=== PATIENT | male | born 1960 | race Caucasian/White ===

== ENCOUNTER 2017-03-21 13:43 | Inpatient (IN) | payer MEDICARE, OTHER ==
[~2017-03-21] VITALS: Ht 182.9 cm; Wt 99.8 kg
[~2017-03-21 13:43] MED LIST: ESOM20CA PO; NORT25CA PO; PROP20TA22 PO
--- NOTE | 2017-03-21 14:00 | NUR ---
PT [id number] FROM [facility]: OVERDOSED ON TEMAZEPAM. PER PT HE WANTS TO HURT HIMSELF. NOTED LETHARGIC, TACHY 110-120'S. SATING AT 90% RA, PLACED ON 02 VIA NC. SEEN BY FOR EVAL. SAFETY AND COMFORT MEASURES PROVIDED. WILL MONITOR.
[2017-03-21 14:26] LABS: BASOPHILS % (AUTO) 0.3 % (0.0-2.0); EOSINOPHILS % (AUTO) 0.4 % (0.0-6.0); HEMATOCRIT 51 % (39-51); HEMOGLOBIN 16.9 g/dL (13.5-17.5); LYMPHOCYTES # (AUTO) 1.2 /CMM (0.8-4.8); LYMPHOCYTES % (AUTO) 11.6 % (20.0-44.0); MEAN CORPUSCULAR HEMOGLOBIN 30 PG (26.0-33.0); MEAN CORPUSCULAR HGB CONC 33 g/dl (31.0-36.0); MEAN CORPUSCULAR VOLUME 91 fL (80-96); MONOCYTES # (AUTO) 0.6 /CMM (0.1-1.30); MONOCYTES % (AUTO) 6.1 % (2.0-12.0); NEUTROPHILS # (AUTO) 8.8 /CMM (1.8-8.9); NEUTROPHILS % (AUTO) 81.6 % (43.0-81.0); PLATELET COUNT (AUTO) 269 /CMM (150-450); RDW COEFFICIENT OF VARIATION 12.6 (11.5-15.0); RED BLOOD CELL COUNT(AUTO) 5.62 MIL/uL (4.5-6.0); WHITE BLOOD COUNT (AUTO) 10.6 K/uL (4.3-11.0)
[2017-03-21] MEDS ORDERED: METOCLOPRAMIDE HCL 10 MG/2 ML VIAL ONE (14:30)
[2017-03-21] MEDS ORDERED: METOCLOPRAMIDE HCL 10 MG/2 ML VIAL IV ONE (14:30)
--- NOTE | 2017-03-21 14:30 | NUR ---
PT MEDICATED ORDERED.
[2017-03-21 14:39] LABS: CALCIUM, SERUM 9.8 mg/dL (8.5-10.1); CARBON DIOXIDE 29 mmol/L (21-32); CHLORIDE 105 mmol/L (98-107); CREATININE 1.4 mg/dL (0.6-1.3); GLUCOSE 143 mg/dL (74-106); POTASSIUM 3.7 mmol/L (3.5-5.1); SODIUM SERUM 142 mmol/L (136-145); UREA NITROGEN, BLOOD 16 mg/dL (7-18)
[2017-03-21 14:45] LABS: ACETAMINOPHEN 0 ug/ml (10-30); ALANINE AMINOTRANSFERASE 32 U/L (12-78); ALBUMIN 4.5 g/dL (3.4-5.0); ALCOHOL, BLOOD < 3 mg/dL (0-0); ALKALINE PHOSPHATASE 81 U/L (46-116); ASPARTATE AMINOTRANSFERASE 15 U/L (15-37); BILIRUBIN,DIRECT 0.1 mg/dL (0.0-0.2); BILIRUBIN,TOTAL 0.8 mg/dL (0.2-1.0); SALICYLATE 1.5 mg/dL (2.8-20.0); TOTAL PROTEIN, SERUM 8.1 g/dL (6.4-8.2)
[2017-03-21 15:26] LABS: APPEARANCE,URINE SL CLOUDY (CLEAR); BILIRUBIN,URINE NEGATIVE (NEGATIVE); BLOOD, URINE NEGATIVE Ery/uL (NEGATIVE); COLOR,URINE YELLOW (YELLOW); KETONES,URINE TRACE (NEGATIVE); LEUKOCYTE ESTERASE ,URINE NEGATIVE (NEGATIVE); NITRITE, URINE NEGATIVE (NEGATIVE); PROTEIN,URINE 1+ mg/dl (NEGATIVE); UGLUCOSE NEGATIVE (NEGATIVE); UROBILINOGEN,URINE 0.2 EU/dL (0.2)
[2017-03-21] MEDS ORDERED: IV SET PRIMARY 1 EA INFUS.SET MC ONE (15:30)
[2017-03-21] MEDS ORDERED: IV NS 0.9% 1,000 ML ONE (15:30)
[2017-03-21 15:33] LABS: BACTERIA,URINE None seen /HPF (None Seen); RBC,URINE 0-2 /HPF (0-2); SQUAMOUS EPITHELIAL CELL,UR Rare /HPF (None Seen); WBC,URINE 0-2 /HPF (0-3)
[2017-03-21] MEDS ORDERED: IV NS 0.9% 1,000 ML BAG IV ONE (16:00)
--- NOTE | 2017-03-21 16:05 | NUR ---
[facility] PAGED, PIPE MANUFACTURE SUPERVISOR
--- NOTE | 2017-03-21 16:15 | NUR ---
REPORT GIVEN TO MOLLY PADILLA FOR JUAN J 110.
[2017-03-21] MEDS ORDERED: Magnesium 1 GM/2 ML VIAL ONE (16:16)
[2017-03-21] MEDS ORDERED: Magnesium 1GM/D5W 100ML PREMIX 200 ML IV ONE (16:19)
[2017-03-21] MEDS ORDERED: IV SET PRIMARY PUMP SET 1 EA INFUS.SET MC ONE ×3 (16:19→17:54)
[2017-03-21 16:21] LABS: ABG BASE EXCESS 0.4 mmol/L; ABG OXYGEN SATURATION 95.2 % (92.0-98.5); ABG PCO2 46.5 mmHg (35.0-45.0); ABG PO2 85.9 mmHg (75.0-100.0); AaDO2 116.8 mmHg; COHb 0.9 % (0.5-1.5); MetHb 0.4 % (0.0-1.5); SITE, ABG Right Radial; VENT MODE, BG NASAL CANNULA
[2017-03-21] MEDS ORDERED: Magnesium 1 GM/2 ML VIAL IV ONE (16:30)
[2017-03-21] MEDS ORDERED: TEMA30CA PO (16:48)
[2017-03-21] MEDS ORDERED: PANT40TA2 PO (16:48)
[2017-03-21] MEDS ORDERED: HYDR50CA PO (16:48)
[2017-03-21] MEDS ORDERED: METF500T4 PO (16:48)
[2017-03-21] MEDS ORDERED: TRAN10TA PO (16:48)
[2017-03-21 17:44] VITALS: BP 162/103
[2017-03-21] MEDS: PANTOPRAZOLE 40 MG TABLET.DR PO SCH (17:54)
[2017-03-21] MEDS: IV NS 0.9% 1,000 ML IV PRN (17:59)
[2017-03-21] MEDS ORDERED: ONDANSETRON HCL/PF 4 MG/2 ML VIAL IVP PRN (18:00)
[2017-03-21] MEDS ORDERED: Z GUARD REMEDY 2 OZ OINT TP PRN (18:00)
[2017-03-21] MEDS ORDERED: MAG HYDROX/AL HYDROX/SIMETH 30 ML UDC PO PRN (18:00)
[2017-03-21] MEDS ORDERED: ACETAMINOPHEN 325 MG TABLET PO PRN (18:00)
[2017-03-21] MEDS ORDERED: MAGNESIUM HYDROXIDE 30 ML UDC PO PRN (18:00)
--- NOTE | 2017-03-21 19:05 | NUR ---
RN opening notes: Received patient on bed lethargic but arousable, alert via verbal stimuli and able to verbally respond but delayed, alert x1 at this time. with sitter at bedside. on o2 via nc at 3lpm, tolerated well at this time, not in apparent distress. iv access noted on rac g18 patent and intact, running ivf at this time as ordered. safety measures ensured. seizure precautions at all times. to closely monitor for seizure/ delirium or distress. 1929 spoke to Sumit of poison control and asked about about patient's current condition. as per Sumit patient's blood pressure is elevated and his heart rate is high as well because pt is positive for amphetamine in urine in conjunction with the benzos that he took. to monitor patient from respi distress and altered vital signs. with instructions to give poison control a call for info or to report alteration in patient's status at this tel no.: [phone] [id number] police officers came and obtained information about the patient stating that patient's family member called them and was also saying that they found the patient's car with his tires slashed etc. they would like to obtain more information from patient about what happened. as of this time patient is still drowsy and is not in good mental status to provide information. continuously monitored patient.
[2017-03-21 19:15] VITALS: BP 164/97
[2017-03-21 20:00] VITALS: BP 135/95
--- NOTE | 2017-03-21 20:00 | NUR ---
RN NOTES: NOTED WITH BLANCHABLE REDNESS OVER BOTH MEDIAL SIDE OF LOWER EXTREMITY. WELL R HAND. REDDENED AREA ARE WARM TO TOUCH AND CLEARLY DEMARCATED WHILE THE REST OF PATIENT'S SKIN SURROUNDING AREA WAS COOL CLAMMY TO TOUCH. SKIN PHOTODOCUMENTATION DONE. MONITORED SKIN FOR CHANGES.
[2017-03-22] VITALS (21 sets, daily range): BP systolic 112–145; BP diastolic 49–100
--- NOTE | 2017-03-22 00:30 | NUR ---
RN NOTES: OBTAINED ACCUCHECKS Q6H ORDERS PATIENT IS NPO AND WITH HX OF DM. NOTED AND CARRIED OUT. CONTINUOUSLY MONITORED PATIENT.
[2017-03-22] MEDS ORDERED: DEXTROSE 50%-WATER 50 ML DISP.SYRIN IV PRN (00:40)
[2017-03-22] MEDS: BLOOD SUGAR DIAGNOSTIC 1 EACH STRIP IN SCH ×5 (00:42→23:05)
[2017-03-22] MEDS: IV NS 0.9% 1,000 ML IV PRN ×3 (02:13→22:53)
--- NOTE | 2017-03-22 03:30 | NUR ---
RN NOTES: PATIENT NOTED TO HAVE NOT URINATED WITHIN SHIFT AND PT IS GETTING 125 CC FLUID VIA IV. DID A BLADDER SCAN, NOTED WITH 675CC RETAINED THE MOST. ALSO NOTED PATIENT TO BE MORE ALTERED VERY LETHARGIC, ABLE TO FLINCH WITH DEEP PAIN ONLY. MD ORDERED TO DO STRAIGHT CATH ALTHOUGH ATKINSON WAS REQUESTED. ASKED DR AMEZCUA IF HE WANTED TO DO ANYTHING ELSE ABOUT THE THE PATIENT BEING MORE ALTERED. JUST TO MONITOR MENTAL STATUS FOR NOW AND NO NEW ORDERS. 0400 STRAIGHT CATH DONE. URINE OUTPUT WAS ALMOST 1000CC. TOLD DR AMEZCUA ABOUT THIS, MD STILL REFUSING ATKINSON CATH. PER MD TO MONITOR FOR FURTHER RETENTION AND THEN CONSIDER ATKINSON CATH.
[2017-03-22 06:39] LABS: EOSINOPHILS % (AUTO) 0.1 % (0.0-6.0); HEMATOCRIT 47 % (39-51); HEMOGLOBIN 15.6 g/dL (13.5-17.5); LYMPHOCYTES # (AUTO) 0.4 /CMM (0.8-4.8); LYMPHOCYTES % (AUTO) 2.1 % (20.0-44.0); MEAN CORPUSCULAR HEMOGLOBIN 31 PG (26.0-33.0); MEAN CORPUSCULAR HGB CONC 34 g/dl (31.0-36.0); MEAN CORPUSCULAR VOLUME 92 fL (80-96); MONOCYTES # (AUTO) 1.7 /CMM (0.1-1.30); MONOCYTES % (AUTO) 9.2 % (2.0-12.0); NEUTROPHILS # (AUTO) 16.4 /CMM (1.8-8.9); NEUTROPHILS % (AUTO) 88.6 % (43.0-81.0); PLATELET COUNT (AUTO) 292 /CMM (150-450); RDW COEFFICIENT OF VARIATION 13.7 (11.5-15.0); RED BLOOD CELL COUNT(AUTO) 5.08 MIL/uL (4.5-6.0); WHITE BLOOD COUNT (AUTO) 18.5 K/uL (4.3-11.0)
--- NOTE | 2017-03-22 07:00 | NUR ---
RN NOTES: PATIENT REMAINED ST ON MONITOR AT 103 BPM. KEPT ON O2 THERAPY O2 SATS AT 94% AT THIS TIME. SKIN CARE RENDERED. PATIENT REMAINS ONLY RESPONSIVE TO PAIN. CONTINUOUSLY MONITORED. IV ACCESS REMAINED INTACT, IVF INFUSING ORDERED. SPOKE TO MOTHER OVER THE PHONE PO BELTRÁN. VERIFIED ADVANCED DIRECTIVE IN THE CHART WHICH WAS DNR. MOTHER WANTS TO KEEP DNR. ENDORSED TO AM SHIFT RN TO INFORM MD ABOUT THE MOTHER'S DECISION; OF NOW PATIENT IS FULL CODE..
[2017-03-22 07:02] LABS: CALCIUM, SERUM 9.2 mg/dL (8.5-10.1); CREATININE 1.1 mg/dL (0.6-1.3); MAGNESIUM 1.9 mg/dL (1.8-2.4); PHOSPHORUS 4.6 mg/dL (2.5-4.9); POTASSIUM 4.5 mmol/L (3.5-5.1)
--- NOTE | 2017-03-22 07:20 | NUR ---
Pt. unresponsive to painful stimuli, pupils 5mm, suctioned orally for clear and white secretions faint gag and cough reflex noted. Dr. Springer notified, Dr block will be here to se pt. Ok to initiate pt on bipaap. Jose RT notified.
[2017-03-22 07:22] LABS: ABG BASE EXCESS -1.3 mmol/L; ABG OXYGEN SATURATION 95.5 % (92.0-98.5); ABG PCO2 51.3 mmHg (35.0-45.0); ABG PH 7.316 (7.350-7.450); ABG PO2 88.2 mmHg (75.0-100.0); COHb 1.1 % (0.5-1.5); MetHb 0.5 % (0.0-1.5); SITE, ABG Right Radial; VENT MODE, BG NASAL CANNULA
[2017-03-22] MEDS: PANTOPRAZOLE 40 MG TABLET.DR PO SCH (07:30)
--- NOTE | 2017-03-22 07:30 | NUR ---
RN INITIAL NOTES RECEIVED PATIENT IN BED, NON-VERBAL, NON-RESPONSIVE TO VERBAL OR TACTILE STIMULI, PUPILS DILATED. ON O2 3LPM VIA NC, DISTRESSED BREATHING NOTED. ABG DONE, DR GRAY NOTIFIED REGARDING ABG RESULTS. VSS STABLE, O2SAT 96%. CONTINUE TO MONITOR, SEIZURE PRECAUTIONS AT ALL TIMES, SIDERAILS UP X4.
--- NOTE | 2017-03-22 07:30 | NUR ---
RN NOTES PT TRANSFERED TO ICU PER MD ORDER .
--- NOTE | 2017-03-22 09:00 | NUR ---
Dr. Noriega at bedside. Updated on pt history and progress. Pt maintains sable natasha signs. Ok to continue on biapap.
[2017-03-22] MEDS ORDERED: PIPERACILLIN /TAZOBACTAM 4.5 G in IV D5W 50 ML IV SCH (10:00)
[2017-03-22 10:20] LABS: ABG BASE EXCESS -1.7 mmol/L; ABG OXYGEN SATURATION 95.5 % (92.0-98.5); ABG PCO2 47.2 mmHg (35.0-45.0); ABG PH 7.334 (7.350-7.450); ABG PO2 85.5 mmHg (75.0-100.0); AaDO2 109.2 mmHg; COHb 1.2 % (0.5-1.5); MetHb 0.7 % (0.0-1.5); O2Hb 93.7 % (94.0-97.0); SITE, ABG Right Radial
[2017-03-22] MEDS ORDERED: FEE PK DOSING 1 MIN EA MC ONE (11:04)
[2017-03-22] MEDS ORDERED: SECONDARY IV SET 1 EA INFUS.SET MC ONE (12:04)
[2017-03-22] MEDS: ENOXAPARIN SODIUM 40 MG/0.4 ML DISP.SYRIN SQ SCH (12:14)
[2017-03-22] MEDS: INSULIN REGULAR, HUMAN 100 UNIT/ML 3 ML VIAL SQ PRN ×2 (12:35→18:17)
[2017-03-22] MEDS: PIPERACILLIN /TAZOBACTAM 3.375 G in IV D5W 50 ML IV SCH ×3 (12:56→23:07)
[2017-03-22] MEDS: VANCOMYCIN 1.25 GM in IV D5W 500 ML IV SCH ×2 (12:56→23:07)
--- NOTE | 2017-03-22 15:50 | NUR ---
Poison control updated on pt status.
[2017-03-22] MEDS ORDERED: FLUMAZENIL 0.5 MG VIAL IV STA (15:52)
[2017-03-22] MEDS ORDERED: ACETAMINOPHEN 325 MG TABLET MC PRN (19:00)
--- NOTE | 2017-03-22 19:09 | NUR ---
RN:ICU: UPON BEDSIDE REPORT, PT NOTED TO BE DESATURATING TO THE 70'S. PT REMAINS LETHARGIC AND ONLY RESPONDS TO DEEP PAINFUL STIMULI. PER PREVIOUS SHIFT ISSUE WITH PT CODE STATUS DOCUMENT IN CHART STATES DNR BUT MOTHER WHO IS DPOA WANTS FULL CODE. PER PREVIOUS SHIFT CODE STATUS ADDRESSED WITH DR GRAY AND PT IS FULL CODE. STAT ABG ORDERED BY PREVIOUS SHIFT DUE TO DESATURATION. PT TEMPORARILY PLACED ON 100% FIO2 WITH 25/5 BUR 14. PT TEMP ALSO REPORTED 101.3, NO BLOOD CULTURES PERFORMED ON THIS PATIENT. STAT BC ORDERED. PT HAS MULTIPLE SUICIDE ATTEMPTS IN THE PAST, NURSE SITTING AT BEDSIDE FOR PT SAFETY. WILL CONTINUE TO MONITOR CLOSELY.
[2017-03-22] MEDS: PANTOPRAZOLE 40 MG VIAL IV SCH (19:32)
[2017-03-22 19:46] LABS: ABG BASE EXCESS -2.8 mmol/L; ABG OXYGEN SATURATION 96.2 % (92.0-98.5); ABG PCO2 35.6 mmHg (35.0-45.0); ABG PH 7.397 (7.350-7.450); ABG PO2 88.6 mmHg (75.0-100.0); AaDO2 588.8 mmHg; COHb 0.8 % (0.5-1.5); MetHb 0.7 % (0.0-1.5); O2Hb 94.8 % (94.0-97.0); SITE, ABG Right Radial
--- NOTE | 2017-03-22 19:51 | NUR ---
RN:ICU: PT ABG RESULTS WNL. FIO2 KEPT AT 100% PO2 ONLY 88. WILL CONTINUE TO MONITOR CLOSELY. PER NEURO PROGRESS NOTE PT TO HAVE CT HEAD WHEN STABLE. PT ON HIGH FIO2 ON BIPAP AND WILL NOT TOLERATE PROCEDURE. NO ORDER IN COMPUTER FOR CT HEAD. WILL F/U WITH DAYSHIFT.
--- NOTE | 2017-03-22 21:31 | NUR ---
RN:ICU: PT TEMP 99.1, WITH COOLING MEASURES. O2 TITRATED TO 60%. WILL CONTINUE TO MONITOR CLOSELY.
[2017-03-23] VITALS (44 sets, daily range): BP systolic 100–176; BP diastolic 57–101
[2017-03-23] MEDS: PIPERACILLIN /TAZOBACTAM 3.375 G in IV D5W 50 ML IV SCH ×4 (05:10→23:27)
[2017-03-23] MEDS: INSULIN REGULAR, HUMAN 100 UNIT/ML 3 ML VIAL SQ PRN ×4 (05:12→23:34)
[2017-03-23] MEDS: BLOOD SUGAR DIAGNOSTIC 1 EACH STRIP IN SCH ×4 (05:12→23:29)
[2017-03-23 07:07] LABS: CALCIUM, SERUM 8.7 mg/dL (8.5-10.1); CREATININE 2.2 mg/dL (0.6-1.3); POTASSIUM 3.9 mmol/L (3.5-5.1)
--- NOTE | 2017-03-23 07:15 | NUR ---
ICU/RN: PT RECEIVED, ON BIPAP, TOLERATING CURRENT SETTINGS. LISA ML PATENT AND INTACT, NS @ 125CC/HR INFUSING WELL. FC DRAINING WELL TO GRAVITY WITH SOME BLOOD CLOTS NOTED FROM TRAUMATIC FC INSERTION. NO S/S DISTRESS NOTED. WILL CONT TO MONITOR PT.
--- NOTE | 2017-03-23 08:00 | NUR ---
ICU/RN: NEURO ASSESSMENT: PT RESPONDS TO DEEP PAIN, STERNAL RUB AE FACIAL GRIMACING, WITHDRAWAL FROM PAIN. PUPILS WITH SLUGGISH REACTION TO LIGHT. NO GAG/COUGH REFLEX NOTED UPON ORAL CARE/SUCTIONING
[2017-03-23 08:26] LABS: BASOPHILS % (AUTO) 0.2 % (0.0-2.0); EOSINOPHILS # (AUTO) 0.2 /CMM (0.0-0.7); EOSINOPHILS % (AUTO) 1.3 % (0.0-6.0); HEMATOCRIT 40 % (39-51); HEMOGLOBIN 13.4 g/dL (13.5-17.5); LYMPHOCYTES # (AUTO) 0.9 /CMM (0.8-4.8); LYMPHOCYTES % (AUTO) 7.1 % (20.0-44.0); MEAN CORPUSCULAR HEMOGLOBIN 31 PG (26.0-33.0); MEAN CORPUSCULAR HGB CONC 33 g/dl (31.0-36.0); MEAN CORPUSCULAR VOLUME 92 fL (80-96); MONOCYTES # (AUTO) 1.3 /CMM (0.1-1.30); MONOCYTES % (AUTO) 10.6 % (2.0-12.0); NEUTROPHILS # (AUTO) 9.8 /CMM (1.8-8.9); NEUTROPHILS % (AUTO) 80.8 % (43.0-81.0); PLATELET COUNT (AUTO) 207 /CMM (150-450); RDW COEFFICIENT OF VARIATION 13.8 (11.5-15.0); RED BLOOD CELL COUNT(AUTO) 4.38 MIL/uL (4.5-6.0); WHITE BLOOD COUNT (AUTO) 12.2 K/uL (4.3-11.0)
[2017-03-23] MEDS: PANTOPRAZOLE 40 MG VIAL IV SCH (08:34)
[2017-03-23] MEDS: ENOXAPARIN SODIUM 40 MG/0.4 ML DISP.SYRIN SQ SCH (08:35)
[2017-03-23 08:50] LABS: ABG OXYGEN SATURATION 94.8 % (92.0-98.5); ABG PCO2 39.1 mmHg (35.0-45.0); ABG PH 7.384 (7.350-7.450); AaDO2 127.1 mmHg; COHb 1.3 % (0.5-1.5); MetHb 0.4 % (0.0-1.5); O2Hb 93.2 % (94.0-97.0); SITE, ABG Left Radial
--- NOTE | 2017-03-23 09:30 | NUR ---
ICU/RN: DR BUENO AT THE BEDSIDE; UPDATED ON LATEST ABG'S, NEURO STATUS. NO INDICATION FOR INTUBATION AT THE MOMENT. POC DW WITH DALI BELTRÁN AT BEDSIDE.
[2017-03-23] MEDS: IV NS 0.9% 1,000 ML IV PRN ×2 (09:51→18:53)
--- NOTE | 2017-03-23 12:15 | NUR ---
ICU/RN: DR GRAY AT THE BEDSIDE; UPDATED ON PT STATUS; PT NOTED TO BE MORE ALERT AND RESPONSIVE COMPARED TO YESTERDAY. INFORMED OF FEVERS; CURRENTLY ON ZOSYN AND VANCO. COOLING MEASURES IN PLACE. AWAITING ORDERS FOR TYLENOL SUPPOSITORY FOR TEMPERATURE CONTROL.
[2017-03-23] MEDS: ACETAMINOPHEN 650 MG/SUPP.RECT RC PRN ×2 (13:33→20:14)
--- NOTE | 2017-03-23 14:00 | NUR ---
ICU/RN: TEPID BATH AND COOLING MEASURES RENDERED. DURING TURNING AND REPOSITIONING PT NOTED WITH INCREASED ALERTNESS, ABLE TO MOVE UPPER AND LOWER EXTREMITIES AND WITHDRAWS TO PAIN. PT NOTED WITH DIFFICULTY COUGHING; RHONCHI AUSCULTATED. PT ORALLY SUCTIONED WITH MODERATE AMOUNT OF THICK WHITE SECRETIONS NOTED. GAG REFLEX NOTED. HOB ELEVATED. ORAL CARE RENDERED. SAFETY MEASURES IN PLACE. WILL CONT TO MONITOR PT.
--- NOTE | 2017-03-23 14:15 | NUR ---
ICU/RN: URINE SAMPLE COLLECTED. CALLED CINDY HUNTLEY FOR MONTESSORI LEAD TEACHER
[2017-03-23 15:11] LABS: CREATININE, URINE 52.3 MG/DL (30.0-125.0); URINE TOTAL PROTEIN 89.6 mg/dL (0-11.9)
[2017-03-23 15:39] LABS: APPEARANCE,URINE CLEAR (CLEAR); BILIRUBIN,URINE NEGATIVE (NEGATIVE); BLOOD, URINE 3+ Ery/uL (NEGATIVE); COLOR,URINE YELLOW (YELLOW); KETONES,URINE NEGATIVE (NEGATIVE); LEUKOCYTE ESTERASE ,URINE TRACE (NEGATIVE); NITRITE, URINE NEGATIVE (NEGATIVE); PH,URINE 5.5 (5.0-8.0); PROTEIN,URINE 2+ mg/dl (NEGATIVE); UGLUCOSE NEGATIVE (NEGATIVE); UROBILINOGEN,URINE 0.2 EU/dL (0.2)
[2017-03-23 16:08] LABS: BACTERIA,URINE None seen /HPF (None Seen); RBC,URINE 21-50 /HPF (0-2); SQUAMOUS EPITHELIAL CELL,UR Rare /HPF (None Seen); WBC,URINE 0-2 /HPF (0-3)
--- NOTE | 2017-03-23 16:30 | NUR ---
ICU/RN: PT SBP INCREASED TO >160MM/HG. HR, RR REMAINS WNL, WITH HX OF HTN, OFF BP MEDS. HOWEVER PT IS BEGINNING TO MOVE BILAT UPPER AND LOWER EXTREMTIES, MUMBLING. DR GRAY PAGED FOR ORDERS.
[2017-03-23 17:04] LABS: EOSINOPHIL,URINE None Seen
--- NOTE | 2017-03-23 17:11 | NUR ---
ICU/RN: F/U WITH [facility]. NO CALL FROM MD YET, PAGED MD AGAIN. EDUCATION RESEARCH ANALYST AWARE.
--- NOTE | 2017-03-23 17:30 | NUR ---
ICU/RN: RECEIVED PHONE CALL FROM POISON CONTROL. NO NEW RECOMMENDATIONS NOTED AT THIS TIME.
[2017-03-23] MEDS ORDERED: VANCOMYCIN 1.25 GM in IV D5W 500 ML IV SCH (18:00)
[2017-03-23] MEDS: CLONIDINE HCL 0.1 MG TABLET PO PRN (18:12)
--- NOTE | 2017-03-23 18:23 | NUR ---
ICU/RN: R NARE NGT INSERTED; VERIFIED PLACEMENT WITH 2ND RN. PT WITH STRONG GAG AND COUGH REFLEX UPON INSERTION. SUCTIONED OUT 100 CC THIN CLEAR SECRETIONS ORALLY. PT TOLERATED PROCEDURE WELL. HOB ELEVATED PER ASPIRATION PRECAUTIONS.
--- NOTE | 2017-03-23 19:17 | NUR ---
ICU/RN: PT REMAINS IN STABLE CONDITION, CARE ENDORSED TO PM RN
[2017-03-23] MEDS ORDERED: ACETAMINOPHEN 325 MG TABLET PO PRN (20:30)
--- NOTE | 2017-03-23 22:18 | NUR ---
ICU OVERFLOW RN NOTES RECEIVED PT IN STABLE STATE. ON BIPAP AT ORDERED SETTINGS, TRIP WELL. TELE READS SR IN 70-80s. RUNNING LNS AT 125 ML/HR. MIDLINE AT LISA, DRESSING INTACT. ATKINSON CATH IN PLACE. SEIZURE PRECAUTIONS, HOB ELEVATED, TURNED AND REPOSITIONED. TEMP MAX OF 102.1, TYLENOL GIVEN AND COOLING MEASURES RENDERED, CURRENT TEMP 98. 6.
[2017-03-24] VITALS (42 sets, daily range): BP systolic 113–183; BP diastolic 60–106
[2017-03-24] MEDS: CLONIDINE HCL 0.1 MG TABLET PO PRN ×3 (00:32→18:03)
[2017-03-24] MEDS: IV NS 0.9% 1,000 ML IV PRN ×4 (03:34→20:40)
--- NOTE | 2017-03-24 04:00 | NUR ---
ENTRY LEVEL PROJECT ENGINEER NOTES PT HAS INCREASED LEVEL OF CONSCIOUSNESS. DOES NOT OPEN EYES BUT MOVES SPONTANEOUSLY IN BED AND PULLS ON LINES AND TUBINGS. BILATERAL SOFT WRIST RESTRAINTS PLACED AND ORDER OBTAINED.
--- NOTE | 2017-03-24 06:00 | NUR ---
RECEIVED CONTINUITY OF CARE FROM KRISTA. PATIENT ON BIPAP, NO RESPIRATORY DISTRESS NOTED, SPO2 100%. F/C PATENT AND INTACT, DRAINING BY GRAVITY. NOTED PATIENT ATTEMPTING TO SWING LEGS OUT OF BED. READJUSTED PATIENT BACK INTO BED AND REPOSITION. IVF RUNNING. HBO ELEVATED. SIDE RAILS UP AND LOCKED. BED KEPT AT LOWEST POSITION. CALL LIGHT KEPT WITHIN EASY REACH. WILL CONTINUE TO MONITOR.
[2017-03-24] MEDS: PIPERACILLIN /TAZOBACTAM 3.375 G in IV D5W 50 ML IV SCH ×3 (06:03→17:05)
[2017-03-24] MEDS: BLOOD SUGAR DIAGNOSTIC 1 EACH STRIP IN SCH ×3 (06:03→17:06)
[2017-03-24] MEDS: INSULIN REGULAR, HUMAN 100 UNIT/ML 3 ML VIAL SQ PRN ×2 (06:03→11:27)
[2017-03-24 06:52] LABS: BASOPHILS % (AUTO) 0.2 % (0.0-2.0); EOSINOPHILS # (AUTO) 0.1 /CMM (0.0-0.7); EOSINOPHILS % (AUTO) 0.6 % (0.0-6.0); HEMATOCRIT 36 % (39-51); HEMOGLOBIN 12.4 g/dL (13.5-17.5); LYMPHOCYTES # (AUTO) 1.1 /CMM (0.8-4.8); LYMPHOCYTES % (AUTO) 7.6 % (20.0-44.0); MEAN CORPUSCULAR HEMOGLOBIN 31 PG (26.0-33.0); MEAN CORPUSCULAR HGB CONC 35 g/dl (31.0-36.0); MEAN CORPUSCULAR VOLUME 91 fL (80-96); MONOCYTES % (AUTO) 7.3 % (2.0-12.0); NEUTROPHILS # (AUTO) 11.7 /CMM (1.8-8.9); NEUTROPHILS % (AUTO) 84.3 % (43.0-81.0); PLATELET COUNT (AUTO) 178 /CMM (150-450); RDW COEFFICIENT OF VARIATION 13.9 (11.5-15.0); RED BLOOD CELL COUNT(AUTO) 3.98 MIL/uL (4.5-6.0); WHITE BLOOD COUNT (AUTO) 13.8 K/uL (4.3-11.0)
[2017-03-24 07:18] LABS: ALBUMIN 2.6 g/dL (3.4-5.0); BILIRUBIN,TOTAL 1.6 mg/dL (0.2-1.0); CALCIUM, SERUM 8.3 mg/dL (8.5-10.1); CREATININE 4.2 mg/dL (0.6-1.3); MAGNESIUM 1.7 mg/dL (1.8-2.4); PHOSPHORUS 2.3 mg/dL (2.5-4.9); POTASSIUM 3.5 mmol/L (3.5-5.1); TOTAL PROTEIN, SERUM 6.2 g/dL (6.4-8.2)
--- NOTE | 2017-03-24 07:20 | NUR ---
ICU/RN: PT RECEIVED, RESPONDS TO NAME AND TOUCH, KICKING PILLOWS OFF BED, CRYING THROUGH BIPAP MASK. AGITATED. RESTRAINT CARE RENDERED, HOWEVER ATTEMPTS TO SIT UP AND PULL LINES. PT DOES NOT FOLLOW COMMANDS, STILL WITH PERIODS OF LETHARGY OBSERVED. ALARM SOUNDS ON AND AUDIBLE. WILL CONT TO MONITOR PT.
[2017-03-24] MEDS: PANTOPRAZOLE 40 MG VIAL IV SCH (08:00)
[2017-03-24] MEDS: ENOXAPARIN SODIUM 40 MG/0.4 ML DISP.SYRIN SQ SCH (08:03)
[2017-03-24 08:24] LABS: ABG BASE EXCESS -2.2 mmol/L; ABG OXYGEN SATURATION 96.5 % (92.0-98.5); ABG PCO2 27.3 mmHg (35.0-45.0); ABG PO2 91.6 mmHg (75.0-100.0); AaDO2 126.2 mmHg; COHb 0.9 % (0.5-1.5); MetHb 0.8 % (0.0-1.5); O2Hb 94.9 % (94.0-97.0); PEEP,BG 5 cm H2O; SITE, ABG Left Radial
[2017-03-24] MEDS ORDERED: VANCOMYCIN 1.25 GM in IV D5W 500 ML IV SCH (09:00)
--- NOTE | 2017-03-24 09:01 | NUR ---
ICU/RN: PT OFF BIPAP AND PLACED ON NASAL CANNULA PER DR BUENO'S ORDERS, ABG'S AND LABS REVIEWED.
--- NOTE | 2017-03-24 10:00 | NUR ---
ICU/RN: DR GRAY AT THE BEDSIDE; PT RESPONDS TO MD WHEN QUESTIONED. NOTIFIED MD OF ABN LABS, PT CONTINUES TO HAVE TEMPERATURES. NO NEW ORDERS, WILL CONT TO MONITOR.
[2017-03-24 11:39] LABS: ABG BASE EXCESS -2.3 mmol/L; ABG OXYGEN SATURATION 94.1 % (92.0-98.5); ABG PCO2 29.7 mmHg (35.0-45.0); ABG PH 7.457 (7.350-7.450); ABG PO2 71.8 mmHg (75.0-100.0); AaDO2 121.6 mmHg; COHb 0.3 % (0.5-1.5); MetHb 0.4 % (0.0-1.5); O2Hb 93.4 % (94.0-97.0); SITE, ABG Left Radial; VENT MODE, BG NASALCANNULA
--- NOTE | 2017-03-24 14:00 | NUR ---
ICU/RN: PT INCONSOLABLE, UNABLE TO REORIENT, AGITATED AND REFUSES TO HAVE LINEN CHANGED, HYGIENIC CARE RENDERED. CONTINUES TO THROW PILLOW ACROSS ROOM.
[2017-03-24] MEDS ORDERED: IV SET PRIMARY PUMP SET 1 EA INFUS.SET MC ONE ×2 (16:58→20:33)
[2017-03-24] MEDS ORDERED: Sodium Phosphate 15 MMOL in IV D5W 250 ML IV ONE (17:00)
[2017-03-24] MEDS: ACETAMINOPHEN 650 MG/SUPP.RECT RC PRN (17:06)
--- NOTE | 2017-03-24 18:00 | NUR ---
ICU/RN: PT CONTINUES TO BE TACHYPNEIC DESPITE COOLING AND COMFORT MEASURES. INCREASED WORK OF BREATHING NOTED. PLACED BACK ON ORDERED BIPAP SETTINGS.
--- NOTE | 2017-03-24 18:10 | NUR ---
RT PT PLACED BACK ON BIPAP WITH PREVIOUS SETTINGS DUE TO INCREASED WOB AND SOB. BIPAP IS PLUGGED INTO RED OUTLET WITH BVM BY BEDSIDE. WILL CONTINUE TO MONITOR. Addendum: 03/24/17 at 1811 by SHELLIE TOLENTINO RT Amended: Links added.
--- NOTE | 2017-03-24 19:13 | NUR ---
ICU/RN: SBP NOW WNL; BREATHING EVEN AND UNLABORED. NO DISTRESS NOTED. REMAINS ON BIPAP, TOLERATING WELL. SITTER AT THE BEDSIDE. CARE ENDORSED TO PM RN FOR NADEEN.
--- NOTE | 2017-03-24 20:00 | NUR ---
RN NOTES RECEIVED PX ASLEEP, AROUSABLE, MUMBLES INCOMPREHENSIBLE WORDS NOT FOLLOWING COMMANDS AND SLEEPS BACK AFTER 15 SEC, T-100.9, PX WAS GIVEN TYLENOL, COOLING MEASURES GIVEN VIA COOL TOWELS AND FAN; WITH BIPAP ON; NGT TAPED TO NOSE; WITH MIDLINE ON RIGHT UA PATENT AND FLUSHED WITH SALINE; ATKINSON CATH TAPED TO THIGH TO BAG BY GRAVITY, NOTED SOME BLOOD COMING OUT OF MEATUS, NO OBVIOUS BLOOD ON ATKINSON BAG, URINE CLEAR AND LIGHT YELLOW; BILAT DVT PUMPS, HEELS OFFLOADED; NOTED REDNESS ON BOTH LEGS, SEE SKIN FLOWSHEET; DISCUSSED PLAN OF CARE WITH PATIENT; ON BILAT SOFT WRIST RESTRAINTS, WHEN THEY WERE DISCONTINUED PX REACHED FOR BIPAP AND BED RAILS, DOES NOT FOLLOW COMMAND DESPITE INSTRUCTIONS, PLACED BACK ON SOFT WRIST RESTRAINTS.
--- NOTE | 2017-03-24 20:30 | NUR ---
RN NOTES CALLED DR. AMEZCUA, MADE AWARE OF TEMP OF 100.9 DESPITE TYLENOL GIVEN AT 1800 AND COOLING MEASURES, URINE CULTURE ORDERED; HR DECREASED TO LOWEST OF 41, BP WNL BUT PX IS LETHARGIC, DR. AMEZCUA ALSO MADE AWARE, DISCONTINUED CLONIDINE; MD INSTRUCTED BACK TO INFORM HIM BP DECREASES.
--- NOTE | 2017-03-24 21:00 | NUR ---
RN NOTES PX MORE CALM NOW, TOOK RESTRAINTS OFF. SITTER AT BEDSIDE.
--- NOTE | 2017-03-24 21:17 | NUR ---
RN NOTES HAD 1 BM, CLEANED PX AND CHANGED GOWN AND BED LINENS, PERICARE RENDERED, PROCEDURE TOLERATED.
[2017-03-24 21:55] LABS: APPEARANCE,URINE CLEAR (CLEAR); BILIRUBIN,URINE NEGATIVE (NEGATIVE); BLOOD, URINE 3+ Ery/uL (NEGATIVE); COLOR,URINE YELLOW (YELLOW); KETONES,URINE 2+ (NEGATIVE); LEUKOCYTE ESTERASE ,URINE NEGATIVE (NEGATIVE); NITRITE, URINE NEGATIVE (NEGATIVE); PH,URINE 5.5 (5.0-8.0); PROTEIN,URINE 1+ mg/dl (NEGATIVE); UGLUCOSE NEGATIVE (NEGATIVE); UROBILINOGEN,URINE 0.2 EU/dL (0.2)
[2017-03-24 22:01] LABS: SQUAMOUS EPITHELIAL CELL,UR Rare /HPF (None Seen); WBC,URINE 0-2 /HPF (0-3)
[2017-03-24 22:02] LABS: BACTERIA,URINE None seen /HPF (None Seen)
[2017-03-24 22:04] LABS: CREATININE, URINE 124.7 MG/DL (30.0-125.0); URINE TOTAL PROTEIN 74.5 mg/dL (0-11.9)
[2017-03-24 22:28] LABS: EOSINOPHIL,URINE None Seen
[2017-03-25] VITALS (36 sets, daily range): BP systolic 114–165; BP diastolic 40–92
[2017-03-25] MEDS: PIPERACILLIN /TAZOBACTAM 3.375 G in IV D5W 50 ML IV SCH ×5 (00:10→23:39)
[2017-03-25] MEDS: BLOOD SUGAR DIAGNOSTIC 1 EACH STRIP IN SCH ×5 (00:10→23:35)
[2017-03-25] MEDS: INSULIN REGULAR, HUMAN 100 UNIT/ML 3 ML VIAL SQ PRN (00:11)
--- NOTE | 2017-03-25 01:20 | NUR ---
RN NOTES HAD ANOTHER BM, CLEANED PX AND CHANGED GOWN AND BED LINENS, PROCEDURE TOLEATED; FOR 2 HOURS NOW PX HAS BEEN RESTLESS, ON AND OFF BUT MORE CONSISTENT NOW, TAKES OFF BIPAP MASK THEN VERBALIZES I CANNOT BREATHE, PLACED BACK ON BIPAP; GAVE AMBIEN PER PX REQUEST.
[2017-03-25] MEDS ORDERED: VANCOMYCIN 1 GM in IV D5W 250 ML IV SCH (01:30)
[2017-03-25] MEDS: ZOLPIDEM TARTRATE 5 MG TABLET PO PRN (01:34)
--- NOTE | 2017-03-25 02:45 | NUR ---
RN NOTES PX MORE AWAKE NOW, ORIENTED TO NAME, CONVERSANT, STILL RESTLESS, ASKING RN TO TAKE OFF MASK, PX ABLE TO TALK CONTINUOUSLY WITH CLEAR WORDS, PLACED ON NC AT 3 LPM, PX SATURATING 97%, PX BECAME MORE CALM AFTER. Addendum: 03/25/17 at 0321 by ANTIONE HAYES RN WRONG ENTRY, WRONG PATIENT. PLS DISREGARD ABOVE NOTES
--- NOTE | 2017-03-25 03:00 | NUR ---
RN NOTES PX MORE AWAKE NOW, ORIENTED TO NAME, CONVERSANT, STILL RESTLESS, ASKING RN TO TAKE OFF MASK, PX ABLE TO TALK CONTINUOUSLY WITH CLEAR WORDS, PLACED ON NC AT 3 LPM, PX SATURATING 97%, PX BECAME MORE CALM AFTER
--- NOTE | 2017-03-25 05:00 | NUR ---
RN NOTES PX RESTLESS AGAIN, EVEN MORE RESTLESS, REACHING FOR NGT AND ATKINSON CATH DESPITE INTRUCTIONS AND HEALTH TEACHING, IT WAS NECESSARY TO PLACE ON BILAT SOFT WRIST RESTRAINTS FOR PATIENT SAFETY SINCE PX IS STRONGER AND FASTER IN ATTEMPTING TO PULL LINES, CONFERRED WITH SALESPERSON RECREATIONAL VEHICLES. HAD ANOTHER BM, CLEANED PX AND CHANGED GOWN AND BED LINENS, PROCEDURE TOLERATED. PX ALSO COMPLAINED OF GENERALIZED PAIN, NORCO GIVEN.
[2017-03-25] MEDS: IV NS 0.9% 1,000 ML IV PRN ×3 (05:03→23:35)
[2017-03-25] MEDS: HYDROCODONE/APAP 5/325MG 1 EACH TABLET PO PRN ×2 (05:32→21:00)
--- NOTE | 2017-03-25 05:58 | NUR ---
RN NOTES PLACED PX BACK ON BIPAP USING OLD SETTINGS SEC TO TACHYPNEA ALTHOUGH O2 SAT IS 96%; CONDITION AND NEURO STATUS UNCHANGED, PX STILL HAS EPISODES OF SUDDEN RESTLESSNESS AND AGITATION I.E. KICKS WITH LEGS, NO NEW SKIN BREAKDOWN, IV ACCESS STILL PATENT.
[2017-03-25 06:47] LABS: CALCIUM, SERUM 8.3 mg/dL (8.5-10.1); CREATININE 4.2 mg/dL (0.6-1.3); POTASSIUM 3.2 mmol/L (3.5-5.1)
[2017-03-25] MEDS: LORAZEPAM INJ 2 MG/ML VIAL IV PRN ×3 (06:57→22:26)
--- NOTE | 2017-03-25 06:58 | NUR ---
RN NOTES PX VERY RESTLESS, ATTEMPTING TO GET OUT, COMBATIVE, ATIVAN GIVEN IV.
--- NOTE | 2017-03-25 07:13 | NUR ---
RN NOTES PX LESS RESTLESS AFTER ATIVAN BUT STILL EASILY AROUSABLE, REPORT GIVEN TO CAROLINA PADILLA.
[2017-03-25] MEDS: PANTOPRAZOLE 40 MG VIAL IV SCH (08:09)
[2017-03-25] MEDS: ENOXAPARIN SODIUM 30 MG/0.3 ML DISP.SYRIN SQ SCH (08:11)
--- NOTE | 2017-03-25 08:31 | NUR ---
pt received on bipap and placed on 2 lpm o2 flow via nasal cannula. bipap on std by @ bedside. Addendum: 03/25/17 at 0832 by TIMOTHY GLASGOW RT Amended: Links added.
[2017-03-25] MEDS ORDERED: VANCOMYCIN 1.25 GM in IV D5W 500 ML IV SCH (09:00)
--- NOTE | 2017-03-25 09:20 | NUR ---
WEB DEVELOPMENT INSTRUCTOR 0830 HR WENT BETWEEN 39-42. DR. GRAY INFORMED. NO MEDICATION GIVEN. PATIENT SATURATION IS 100% BI-PAP IS REMOVED BY RT ON DUTY. HR NOTICED WENT TO NORMAL, HR BETWEEN 60-75.
[2017-03-25 11:42] LABS: ABG BASE EXCESS -5.8 mmol/L; ABG OXYGEN SATURATION 96.3 % (92.0-98.5); ABG PCO2 29.2 mmHg (35.0-45.0); ABG PH 7.403 (7.350-7.450); ABG PO2 96.1 mmHg (75.0-100.0); AaDO2 76.3 mmHg; COHb 0.3 % (0.5-1.5); MetHb 0.4 % (0.0-1.5); O2Hb 95.6 % (94.0-97.0); SITE, ABG Right Radial; VENT MODE, BG nasal cannula
[2017-03-25 14:14] LABS: PTH, INTACT 30 pg/mL (15-65)
--- NOTE | 2017-03-25 16:05 | NUR ---
ROPE MAKER PLACED PATIENT ON 4 POINT RESTRAINT, PATIENT BECAME AGITATED AND KICKING HIS SITTER
[2017-03-25] MEDS ORDERED: LORAZEPAM INJ 2 MG/ML VIAL IV ONE (16:30)
--- NOTE | 2017-03-25 18:45 | NUR ---
RESPIR RATE 48 BPM AND SHALLOW. SPO2 93% ON N/C. PT AWAKENS AND IS CONVERSANT BUT CONFUSED. CONGESTED COUGH. -ABG DONE WHICH SHOW NORMAL PH, PCO2 < 30 AND PO2 >120. D/W RT. RT TO SUCTION AND TRIAL BIPAP
[2017-03-25 19:02] LABS: ABG BASE EXCESS -4.6 mmol/L; ABG PCO2 25.9 mmHg (35.0-45.0); ABG PH 7.457 (7.350-7.450); ABG PO2 138.2 mmHg (75.0-100.0); AaDO2 88.4 mmHg; COHb 0.9 % (0.5-1.5); MetHb 0.8 % (0.0-1.5); O2Hb 96.3 % (94.0-97.0); SITE, ABG Right Radial; VENT MODE, BG NC 4L
[2017-03-25] MEDS: ACETAMINOPHEN 650 MG/SUPP.RECT RC PRN (19:17)
--- NOTE | 2017-03-25 19:29 | NUR ---
ICU-OF/BUSINESS EDITOR RECEIVED PT HIGHLY AGITATED IN SOFT 4-POINT RESTRAINT FROM PREVIOUS SHIFT. PT RESPIRATORY RATE 60. AXILLARY TEMP 102.2. ABG COMPLETED AND PT SUCTIONED BY RT AND PLACED ON BI-PAP. NGT COULD NOT BE VERIFIED BY AUSCULTATION, COULD NOT BE ASPIRATED AND WAS NOTED WITH BUBBLING WHEN TIP WAS PLACED IN WATER. NGT WAS REMOVED. WILL PLACE A NEW ONE SHORTLY. WILL CONTINUE TO MONITOR PT 1:1.
--- NOTE | 2017-03-25 19:47 | NUR ---
ICU-OF/ANALYSIS MGR NEW NGT PLACED BY MYSELF. 60CM AT THE NOSE. STAT CXR ORDERED FOR PLACEMENT VERIFICATION. WILL CONTINUE TO MONITOR 1:1.
[2017-03-25 20:35] LABS: MAGNESIUM 1.7 mg/dL (1.8-2.4); POTASSIUM 3.5 mmol/L (3.5-5.1)
--- NOTE | 2017-03-25 23:17 | NUR ---
ICU-OF/DAMPENER OPERATOR PT STILL HIGHLY AGITATED. TRASHING VIOLENTLY IN BED AFTER PRN ATIVAN ADMINISTRATION. SAFETY MEASURES IN PLACE ORDERED. REORIENTATION IS UNSUCCESSFUL. WILL CONTINUE TO MONITOR 1:1.
[2017-03-26] VITALS (26 sets, daily range): BP systolic 116–162; BP diastolic 56–115
[2017-03-26] MEDS: HYDROCODONE/APAP 5/325MG 1 EACH TABLET PO PRN ×2 (02:15→06:11)
--- NOTE | 2017-03-26 06:08 | NUR ---
RT PT RECEIVED ON 4L NC. PT WAS PLACED ON BIPAP ORDERED PER MD AT BEGINNING OF THE SHIFT DUE TO PT SHOWING INCREASED WORK OF BREATHING WITH ABDOMINAL AND ACCESSORY MUSCLE USAGE. PT RESPIRATORY RATES WHERE HIGH 40. PT SHOWED GREAT IMPROVEMENT ON BIPAP AND TOLERATED SETTING. PT WAS TAKE OFF BIPAP AT 0400 AND PLACED BACK ON 4L NC AND WITH NO SINGS OF SOB OR RESP DISTRESS. PT DID HAVE PRESSURE ULCERS ON THE BRIDGE OF NOSE AND SIDE OF NOSE PRIOR TO BEING PLACED ON BIPAP RANDY MEZA IS AWARE. WILL CONTINUE TO MONITOR AND ENDORSE TO DAY SHIFT RT. Addendum: 03/26/17 at 0616 by MANAN MORA RT Amended: Links added.
[2017-03-26] MEDS: PIPERACILLIN /TAZOBACTAM 3.375 G in IV D5W 50 ML IV SCH ×3 (06:10→17:00)
[2017-03-26] MEDS: BLOOD SUGAR DIAGNOSTIC 1 EACH STRIP IN SCH ×3 (06:12→17:00)
[2017-03-26 06:26] LABS: BASOPHILS % (AUTO) 0.3 % (0.0-2.0); EOSINOPHILS # (AUTO) 0.2 /CMM (0.0-0.7); EOSINOPHILS % (AUTO) 2.1 % (0.0-6.0); HEMATOCRIT 31 % (39-51); HEMOGLOBIN 10.7 g/dL (13.5-17.5); LYMPHOCYTES # (AUTO) 1.1 /CMM (0.8-4.8); LYMPHOCYTES % (AUTO) 9.6 % (20.0-44.0); MEAN CORPUSCULAR HEMOGLOBIN 31 PG (26.0-33.0); MEAN CORPUSCULAR HGB CONC 35 g/dl (31.0-36.0); MEAN CORPUSCULAR VOLUME 91 fL (80-96); MONOCYTES # (AUTO) 1.2 /CMM (0.1-1.30); MONOCYTES % (AUTO) 10.1 % (2.0-12.0); NEUTROPHILS # (AUTO) 9.3 /CMM (1.8-8.9); NEUTROPHILS % (AUTO) 77.9 % (43.0-81.0); PLATELET COUNT (AUTO) 137 /CMM (150-450); RED BLOOD CELL COUNT(AUTO) 3.42 MIL/uL (4.5-6.0)
[2017-03-26 06:40] LABS: CALCIUM, SERUM 8.5 mg/dL (8.5-10.1); CREATININE 3.9 mg/dL (0.6-1.3); MAGNESIUM 1.9 mg/dL (1.8-2.4); PHOSPHORUS 3.6 mg/dL (2.5-4.9); POTASSIUM 3.4 mmol/L (3.5-5.1)
--- NOTE | 2017-03-26 07:41 | NUR ---
INITIAL ICU OVERFLOW RN NOTE RCVD PT SLEEPING IN BED SHOWING NO S/O DISTRESS OR C/O PAIN. PT AROUSED TO NAME/TOUCH, DENIES ANY AUDITORY/VISUAL HALLUCINATIONS AND STATES THAT HE DOES NOT WANT TO KILL SELF ANYMORE. TOLERATING O2 VIA NC. SB ON TELE. ATKINSON DRAINING CLOUDY, YELLOW URINE. NGTUBE PLACEMENT VERIFIED BY AUSCULTATION/ASPIRATION. LISA MIDLINE C/D/I/PATENT. NO C/O INFILTRATION OR PHLEBITIS OBSERVED IVF INFUSING. SITTER AT BEDSIDE FOR SAFETY. WILL CONTINUE TO MONITOR PT FOR SAFETY AND COMFORT. CALL LIGHT WITHIN REACH. BED IN LOW AND LOCKED POSITION.
[2017-03-26] MEDS: IV NS 0.9% 1,000 ML IV PRN (07:47)
[2017-03-26] MEDS: PANTOPRAZOLE 40 MG VIAL IV SCH (08:04)
[2017-03-26] MEDS: ENOXAPARIN SODIUM 30 MG/0.3 ML DISP.SYRIN SQ SCH (08:05)
--- NOTE | 2017-03-26 09:16 | NUR ---
ICU OF RN NOTE CALL MADE TO [facility] REQUESTING DR. WINTER TO SEE PT. PER STAFF DR. WINTER AWARE OF CONSULT AND WILL COME TO ASSESS PT TODAY.
[2017-03-26] MEDS ORDERED: POTASSIUM CHLORIDE 20 MEQ POWDER PACKET PO SCH (11:00)
[2017-03-26] MEDS ORDERED: LOPERAMIDE HCL (2 MG CAP) 2 MG CAPSULE PO ONE (11:00)
[2017-03-26] MEDS ORDERED: hydrALAZINE HCL IV 20 MG VIAL IV PRN (11:00)
[2017-03-26] MEDS: IV 1/2NS 1000 ML 1,000 ML IV PRN ×2 (11:15→20:43)
--- NOTE | 2017-03-26 12:37 | NUR ---
ICU OF RN NOTE DR. WINTER IN UNIT ASSESSING PT. PT'S FAMILY AT BEDSIDE (PT'S MOM AND SISTER) SITTER REMAINS AT BEDSIDE. BILATERAL ANKLE RESTRAINTS REMOVED. BILATERAL WRIST RESTRAINTS REMAIN IN PLACE DUR TO PT ATTEMPTING TO GET OUT OF BED AND REMOVE NG TUBE DESPITE BEING INSTRUCTED NOT TO DO THIS. WILL CONTINUE TO MONITOR.
[2017-03-26] MEDS ORDERED: HALOPERIDOL 5 MG TABLET NG SCH (13:00)
[2017-03-26] MEDS: diphenhydrAMINE HCL ELIX 25 MG/10 ML UDC NG SCH ×2 (13:30→16:42)
--- NOTE | 2017-03-26 16:09 | NUR ---
ICU OV RN NOTE PT MORE CALM AT THIS TIME, APPEARS MORE ALERT AND COHERENT WHEN SPEAKING THOUGH SPEECH REMAINS SLURRED. WILL CONTINUE TO MONITOR.
[2017-03-26] MEDS: HALOPERIDOL LACTATE 10 MG/5 ML UDC NG SCH (16:42)
--- NOTE | 2017-03-26 18:40 | NUR ---
ENDING REINSTATEMENT CLERK NOTE PT REMAINS STABLE, SITTER AT BEDSIDE FOR SAFETY. ATKINSON CATH IN PLACE DRAINING YELLOW URINE. TOLERATING ICE CHIPS AT THIS TIME PER DR. SMITH'S RECOMMENDATIONS. SR ON TELE. IV SITE REMAINS INTACT. PT'S CARE WILL BE ENDORSED TO QUALITY LAB TECHNICIAN RN FOR CONTINUITY OF CARE. BED IN LOW AND LOCKED POSITION.
[2017-03-26] MEDS: LORAZEPAM INJ 2 MG/ML VIAL IV PRN ×2 (18:50→22:59)
--- NOTE | 2017-03-26 19:20 | NUR ---
RN INITIAL NOTE RECEIVED PT IN NO ACUTE DISTRESS IN BED. PT IS A/O X 2 WITH PERIODS OF FORGETFULNESS/ CONFUSION. PT IS ON RA AND TOLERATING WELL WITH O2 SAT @ 98%. PT IS ON TELE/ BEDSIDE MONITORING WITH SB ON THE MONITOR. PT HAS NG TUBE THAT IS CLEAN DRY AND INTACT. PT HAS ORDERS FOR FREE H2O FLUSHES Q4H (250ML). PT HAS F/C THAT IS CLEAN DRY INTACT AND PATENT WITH CLEAR YELLOW URINE DRAINING. PT HAS 4 POINT RESTRAINTS DUE TO PT GETTING VERY AGITATED AND COMBATIVE. WILL CONTINUE TO MONITOR PT. PT HAS LISA ML THAT IS CLEAN DRY INTACT AND PATENT WITH 1/2 NS @ 125ML/HR. BED IN LOW LOCK POSITION WITH RAILS UP X 2. CALL LIGHT WITHIN REACH AND ALL SAFETY MEASURES ENSURED AND CARRIED OUT. WILL CONTINUE TO MONITOR PT.
[2017-03-27] VITALS (15 sets, daily range): BP systolic 127–181; BP diastolic 42–96
[2017-03-27] MEDS: ZOLPIDEM TARTRATE 5 MG TABLET PO PRN (00:15)
[2017-03-27] MEDS: PIPERACILLIN /TAZOBACTAM 3.375 G in IV D5W 50 ML IV SCH ×5 (00:45→23:26)
[2017-03-27] MEDS: BLOOD SUGAR DIAGNOSTIC 1 EACH STRIP IN SCH ×5 (00:45→23:27)
[2017-03-27] MEDS: LORAZEPAM INJ 2 MG/ML VIAL IV PRN ×2 (03:42→20:54)
--- NOTE | 2017-03-27 06:38 | NUR ---
RN CLOSING NOTE PT REMAINS IN NO ACUTE DISTRESS IN BED. PT DID NOT HAVE ANY SIGNIFICANT CHANGE IN CONDITION DURING SHIFT. ALL NEEDS MET ALL ORDERS CARRIED OUT. WILL ENDORSE TO AM RN FOR CONTINUITY OF CARE.
[2017-03-27 07:10] LABS: *SPE A/G RATIO 1.2 (0.7-1.7); *SPE ALBUMIN 2.9 g/dL (2.9-4.4); *SPE ALPHA-1-GLOBULIN 0.4 g/dL (0.0-0.4); *SPE ALPHA-2-GLOBULIN 0.8 g/dL (0.4-1.0); *SPE BETA GLOBULIN 0.7 g/dL (0.7-1.3); *SPE GLOBULIN, TOTAL 2.5 g/dL (2.2-3.9); *SPE M-SPIKE Not Observed g/dL (Not Observed); *SPE PROTEIN TOTAL 5.4 g/dL (6.0-8.5); *SPEGAMMA GLOBULIN 0.6 g/dL (0.4-1.8)
[2017-03-27] MEDS: IV 1/2NS 1000 ML 1,000 ML IV PRN (07:11)
[2017-03-27 07:44] LABS: BASOPHILS % (AUTO) 0.3 % (0.0-2.0); CALCIUM, SERUM 8.5 mg/dL (8.5-10.1); CREATININE 3.4 mg/dL (0.6-1.3); EOSINOPHILS # (AUTO) 0.2 /CMM (0.0-0.7); EOSINOPHILS % (AUTO) 1.8 % (0.0-6.0); HEMATOCRIT 31 % (39-51); HEMOGLOBIN 10.2 g/dL (13.5-17.5); LYMPHOCYTES # (AUTO) 1.1 /CMM (0.8-4.8); LYMPHOCYTES % (AUTO) 11.1 % (20.0-44.0); MEAN CORPUSCULAR HEMOGLOBIN 31 PG (26.0-33.0); MEAN CORPUSCULAR HGB CONC 34 g/dl (31.0-36.0); MEAN CORPUSCULAR VOLUME 91 fL (80-96); MONOCYTES % (AUTO) 10.4 % (2.0-12.0); NEUTROPHILS # (AUTO) 7.6 /CMM (1.8-8.9); NEUTROPHILS % (AUTO) 76.4 % (43.0-81.0); PLATELET COUNT (AUTO) 111 /CMM (150-450); POTASSIUM 3.4 mmol/L (3.5-5.1); RED BLOOD CELL COUNT(AUTO) 3.33 MIL/uL (4.5-6.0)
[2017-03-27 08:09] LABS: ALBUMIN 2.1 g/dL (3.4-5.0); BILIRUBIN,DIRECT 0.2 mg/dL (0.0-0.2); BILIRUBIN,TOTAL 0.6 mg/dL (0.2-1.0); TOTAL PROTEIN, SERUM 5.8 g/dL (6.4-8.2)
[2017-03-27] MEDS: diphenhydrAMINE HCL ELIX 25 MG/10 ML UDC NG SCH ×2 (08:09→18:02)
[2017-03-27] MEDS: PANTOPRAZOLE 40 MG VIAL IV SCH (08:09)
[2017-03-27] MEDS: HALOPERIDOL LACTATE 10 MG/5 ML UDC NG SCH ×2 (08:09→18:02)
[2017-03-27] MEDS: ENOXAPARIN SODIUM 30 MG/0.3 ML DISP.SYRIN SQ SCH (08:15)
--- NOTE | 2017-03-27 10:00 | NUR ---
RN NOTES: PT SEEN & EXAMINED BY DR. WINTER.
--- NOTE | 2017-03-27 10:30 | NUR ---
UNDER PRESSER PT IN BED AWAKE ALERT CONFUSED STILL ON OXYGEN NC 4L SAT 100% ATKINSON PRESENT, IV ACCESS PATENT PT 4POINT RESTRAINTS REMOVED AT 0800, KEEP ORIENTING PT TO HOSPITAL AND SURROUNDING, 1:1 SITTER AT BEDSIDE, MOTHER AT BEDSIDE, REPORT GIVEN TO YEN PADILLA FOR CONTINUATION OF CARE, FALL PRECAUTIONS TAKEN CALL LIGHT W/ IN REACH.
--- NOTE | 2017-03-27 11:00 | NUR ---
RN NOTES: PT SEEN & EXAMINED BY DR. ALSTON.
[2017-03-27] MEDS ORDERED: POTASSIUM CHLORIDE 20 MEQ TAB.PRT.SR PO SCH (12:00)
--- NOTE | 2017-03-27 12:00 | NUR ---
RN NOTES: PT SEEN & EXAMINED BY DR. Alexandria SMITH.
[2017-03-27] MEDS ORDERED: SECONDARY IV SET 1 EA INFUS.SET MC ONE (12:03)
[2017-03-27] MEDS: INSULIN REGULAR, HUMAN 100 UNIT/ML 3 ML VIAL SQ PRN ×2 (12:03→18:06)
--- NOTE | 2017-03-27 13:00 | NUR ---
RN NOTES: PT SEEN & EXAMINED BY DR. GRAY.
[2017-03-27] MEDS: Potassium Chloride 20 MEQ in IV D5W 1,000 ML IV PRN (15:11)
--- NOTE | 2017-03-27 19:22 | NUR ---
RN CLOSING NOTES: NO ACUTE CHANGES NOTED W/IN SHIFT. 1:1 SITTER AT BEDSIDE. NGT KEPT PATENT / INTACT, CLAMPED. SWALLOW EVAL DONE, TO START DIET SILVER AM. PT MADE AWARE. KEPT WELL RESTED. CALL LIGHT PLACED W/IN REACH. BED KEPT LOW & IN LOCKED POSITION. ALL NEEDS ATTENDED. ENDORSED TO PM RN FOR NADEEN.
--- NOTE | 2017-03-27 19:30 | NUR ---
RN NOTES RECEIVED PT IN BED, AWAKE, ALERT AND VERBALLY RESPONSIVE TO STIMULI.WITH PERIODS OF FORGETFULNESS AND CONFUSION NOTED. DENIES ANY PAIN WHEN ASKED.SITTER ON THE BEDSIDE.RIGHT UPPER MIDLINE NOTED AND INTACT WITH IVF INFUSING WELL. ATKINSON CATHETER DWELLING WELL. KEPT CLEAN AND DRY.SAFETY PRECAUTION MAINTAINED. WILL CONTINUE TO MONITOR.
--- NOTE | 2017-03-27 22:30 | NUR ---
RN NOTES PT PULLED OUT MIDLINE. MADE AWARE WITH AN ORDER THAT MAY INSERT MIDLINE.
[2017-03-28] VITALS: BP 156/82
[2017-03-28] MEDS: HYDROCODONE/APAP 5/325MG 1 EACH TABLET PO PRN ×3 (01:08→16:58)
[2017-03-28] MEDS: ZOLPIDEM TARTRATE 5 MG TABLET PO PRN (01:09)
[2017-03-28] MEDS: LORAZEPAM INJ 2 MG/ML VIAL IV PRN ×3 (02:23→16:57)
--- NOTE | 2017-03-28 02:28 | NUR ---
TELE NOTES PT IS SCREAMING AND TRYING TO GET OUT OF BED AND PULLING LINES NOTED. ATIVAN 1MG GIVEN ORDERED. WILL CONTINUE TO REASSESS.
[2017-03-28 04:00] VITALS: BP 152/78
[2017-03-28] MEDS ORDERED: IV PREMIX D5W + KCL 1,000 ML IV ONE (05:04)
[2017-03-28] MEDS: PIPERACILLIN /TAZOBACTAM 3.375 G in IV D5W 50 ML IV SCH ×3 (05:11→17:00)
[2017-03-28] MEDS: Potassium Chloride 20 MEQ in IV D5W 1,000 ML IV PRN ×2 (05:36→13:27)
[2017-03-28] MEDS: BLOOD SUGAR DIAGNOSTIC 1 EACH STRIP IN SCH ×4 (05:48→23:59)
[2017-03-28] MEDS: INSULIN REGULAR, HUMAN 100 UNIT/ML 3 ML VIAL SQ PRN ×2 (05:48→13:29)
--- NOTE | 2017-03-28 07:17 | NUR ---
RN NOTES ENDORSED PT.TO THE NEXT SHIFT WITH NO CHANGE OF CONDITION
[2017-03-28 07:34] LABS: CALCIUM, SERUM 8.7 mg/dL (8.5-10.1); CREATININE 2.9 mg/dL (0.6-1.3); POTASSIUM 3.5 mmol/L (3.5-5.1)
[2017-03-28 08:00] VITALS: BP 130/69
--- NOTE | 2017-03-28 08:08 | NUR ---
RN INITIAL NOTE PATIENT RECEIVED IN BED, RESTING. PT IS EASILY AROUSED, OBEYS COMMANDS, IS CONFUSED. NO S/S OF PAIN OR DISCOMFORT. PT IS SINUS RHYTHM ON TELE MONITOR. RESPIRATIONS ARE EVEN AND UNLABORED SATING WELL ON 4L N/C. NO S/S OF RESPIRATORY DISTRESS OR SOB. ATKINSON CATHETER DRAINING TO GRAVITY. FLEX SEAL DRAINING TOGRAVITY. IV SITE FLUSHED, PATENT. DRESSING C/D/I. PATIENT ON BILATERAL, SOFT WRIST RESTRAINTS. RESTRAINTS REMOVED AND SKIN/ CIRCULATION ASSESSED. SKIN IS WARM AND DRY TO TOUCH. SAFETY PRECAUTIONS IN PLACE, BED IN LOCKED, LOW POSITION WITH TWO BED RAILS UP. CALL LIGHT AND BELONGINGS WITHIN EASY REACH. WILL CONTINUE TO MONITOR.
[2017-03-28] MEDS ORDERED: POTASSIUM CHLORIDE 20 MEQ POWDER PACKET NG SCH (09:00)
[2017-03-28] MEDS: ENOXAPARIN SODIUM 30 MG/0.3 ML DISP.SYRIN SQ SCH (10:00)
[2017-03-28] MEDS: HALOPERIDOL LACTATE 10 MG/5 ML UDC NG SCH ×2 (10:00→16:57)
[2017-03-28] MEDS: diphenhydrAMINE HCL ELIX 25 MG/10 ML UDC NG SCH ×2 (10:00→16:57)
[2017-03-28] MEDS: PANTOPRAZOLE 40 MG VIAL IV SCH (10:00)
[2017-03-28 12:00] VITALS: BP 141/74
[2017-03-28 16:00] VITALS: BP 118/73
[2017-03-28] MEDS: BOOST GLUCOSE CONTROL VANILLA 237 ML BOX PO SCH (18:00)
--- NOTE | 2017-03-28 19:24 | NUR ---
RN CLOSING NOTE ALL MD ORDERS CARRIED OUT. WILL GIVE REPORT TO PM RN FOR NADEEN
--- NOTE | 2017-03-28 19:25 | NUR ---
RN NOTES RECEIVED PT AWAKE,HOB ELEVATED, NO SOB, NOT IN DISTRESS, ON O2 INHALATION AT 4LPM VIA NC AND TOLERATED WELL. PT ALERT AND ORIENTED X2, DENIES ANY PAIN AND DISCOMFORT AT THIS TIME.WITH NG TUBE INTACT. IV ACCESS ON RIGHT UPPER ARM MIDLINE AND LEFT HAND PATENT AND INTACT. ATKINSON CATH INTACT WITH CLEAR YELLOW URINE OUTPUT. FLEXI SEAL INTACT WITH BLACK SOFT STOOL NOTED. SITTER AT BED SIDE. KEPT PT CLEAN AND DRY. WILL CONTINUE TO MONITOR PT.
[2017-03-28 22:00] VITALS: BP 122/68
--- NOTE | 2017-03-28 23:59 | NUR ---
RN NOTES BLOOD SUGAR CHECKED 158 MG/DL, NO INSULIN COVERAGE GIVEN PT IS NPO. WILL CONTINUE TO MONITOR.
[2017-03-29] VITALS: BP 126/70
[2017-03-29] MEDS: INSULIN REGULAR, HUMAN 100 UNIT/ML 3 ML VIAL SQ PRN ×3 (00:03→13:29)
[2017-03-29] MEDS: Potassium Chloride 20 MEQ in IV D5W 1,000 ML IV PRN ×2 (01:30→15:59)
[2017-03-29 04:00] VITALS: BP 142/75
[2017-03-29] MEDS: LORAZEPAM INJ 2 MG/ML VIAL IV PRN ×2 (04:37→08:26)
--- NOTE | 2017-03-29 04:37 | NUR ---
RN NOTESW PT AWAKE, TRYING TO PULL OUT HIS ATKINSON CATH, ATIVAN 1 MG GIVEN IV. WILL CONTINUE TO MONITOR PT.
[2017-03-29] MEDS: PIPERACILLIN /TAZOBACTAM 3.375 G in IV D5W 50 ML IV SCH ×6 (06:32→23:51)
[2017-03-29] MEDS: BLOOD SUGAR DIAGNOSTIC 1 EACH STRIP IN SCH ×4 (06:32→23:53)
--- NOTE | 2017-03-29 07:13 | NUR ---
RN NOTES PT AWAKE, CONSTANTLY MOVING IN BED WITH SITTER AT BEDSIDE. PT INTERMITTENTLY AT NIGHT. VITAL SIGNS STABLE, AFEBRILE, NO EPISODE OF NAUSEA AND VOMITING. NO COMPLAIN OF PAIN. TELE MONITOR READS SINUS RHYTHM WITH HEART RATE AT 63. KEPT COMFORTABLE AND ATTENDED. ALL DUE MEDS GIVEN. NO SIGNIFICANT ROBLERO IN CONDITION NOTED. ENDORSED TO MORNING RN FOR CONTINUITY OF CARE.
--- NOTE | 2017-03-29 07:15 | NUR ---
RN INITIAL NOTE PT RECEIVED IN BED, RESTING. EASILY AROUSED, DISORIENTED. PATIENT IS SINUS RHYTHM ON TELE MONITOR WITH HEART RATE IN THE 60'S. RESPIRATIONS ARE EVEN AND UNLABORED. NO S/S OF SOB OR RESPIRATORY DISTRESS. SATING WELL ON 2L NASAL CANULA. ATKINSON CATHETER DRAINING TO GRAVITY. IV SITE FLUSHED, PATENT. DRESSING C/D/I. SKIN IS WARM AND DRY TO TOUCH. SAFETY PRECAUTIONS IN PLACE, BED IN LOW, LOCKED POSITION WITH TWO SIDE RAILS UP. CALL LIGHT AND BELONGINGS WITHIN EASY REACH. WILL MONITOR CLOSELY.
--- NOTE | 2017-03-29 07:30 | NUR ---
RN NOTE PATIENT REMOVED NGT. SITTER AT BEDSIDE.
[2017-03-29 07:55] LABS: BASOPHILS % (AUTO) 0.5 % (0.0-2.0); EOSINOPHILS # (AUTO) 0.2 /CMM (0.0-0.7); HEMATOCRIT 33 % (39-51); HEMOGLOBIN 11.3 g/dL (13.5-17.5); LYMPHOCYTES # (AUTO) 0.8 /CMM (0.8-4.8); LYMPHOCYTES % (AUTO) 11.2 % (20.0-44.0); MEAN CORPUSCULAR HEMOGLOBIN 31 PG (26.0-33.0); MEAN CORPUSCULAR HGB CONC 34 g/dl (31.0-36.0); MEAN CORPUSCULAR VOLUME 90 fL (80-96); MONOCYTES # (AUTO) 1.1 /CMM (0.1-1.30); MONOCYTES % (AUTO) 15.2 % (2.0-12.0); NEUTROPHILS # (AUTO) 4.9 /CMM (1.8-8.9); NEUTROPHILS % (AUTO) 70.1 % (43.0-81.0); PLATELET COUNT (AUTO) 141 /CMM (150-450); RDW COEFFICIENT OF VARIATION 13.3 (11.5-15.0); RED BLOOD CELL COUNT(AUTO) 3.67 MIL/uL (4.5-6.0)
[2017-03-29 08:00] VITALS: BP 126/69
[2017-03-29 08:19] LABS: ALBUMIN 2.2 g/dL (3.4-5.0); BILIRUBIN,TOTAL 0.5 mg/dL (0.2-1.0); CALCIUM, SERUM 8.6 mg/dL (8.5-10.1); CREATININE 2.7 mg/dL (0.6-1.3); MAGNESIUM 1.8 mg/dL (1.8-2.4); PHOSPHORUS 2.5 mg/dL (2.5-4.9); POTASSIUM 3.6 mmol/L (3.5-5.1); TOTAL PROTEIN, SERUM 6.2 g/dL (6.4-8.2)
[2017-03-29] MEDS: PANTOPRAZOLE 40 MG VIAL IV SCH (08:26)
[2017-03-29] MEDS: diphenhydrAMINE HCL ELIX 25 MG/10 ML UDC NG SCH ×2 (08:26→15:59)
[2017-03-29] MEDS: HALOPERIDOL LACTATE 10 MG/5 ML UDC NG SCH ×2 (08:26→15:59)
[2017-03-29] MEDS: HYDROCODONE/APAP 5/325MG 1 EACH TABLET PO PRN ×3 (08:26→23:54)
[2017-03-29] MEDS: ENOXAPARIN SODIUM 30 MG/0.3 ML DISP.SYRIN SQ SCH (08:34)
[2017-03-29 08:44] LABS: EOSINOPHILS % (MANUAL) 4 % (0-4); LYMPHOCYTES % (MANUAL) 7 % (16-48); MONOCYTES % (MANUAL) 5 % (0-11.0); NEUTROPHILS % (MANUAL) 84 (42-76)
[2017-03-29] MEDS: BOOST GLUCOSE CONTROL VANILLA 237 ML BOX PO SCH ×2 (09:48→16:25)
[2017-03-29 16:00] VITALS: BP 157/83
--- NOTE | 2017-03-29 19:30 | NUR ---
MS RN INITIAL NOTES RECEIVED PATIENT AWAKE, A/OX2, ABLE TO MAKE NEEDS KNOWN, WITH EPISODE OF BEING DEMANDING AND CURSING. DENIES PAIN OR DISCOMFORT AT THIS TIME. DENIES SOB. RESPIRATIONS EVEN AND UNLABORED ON 4LPMO2 VIA NC. SKIN WARM AND DRY TO TOUCH. WITH FLEXISEAL IN PLACE DRAINING DARK BROWN, LIQUID STOOL. WITH F/C PATENT AND INTACT, DRAINING BY GRAVITY. WITH LISA MIDLINE PATENT AND INTACT FLUIDS RUNNING 20MEQKCL IN D5W AT 100ML/HR. ASKED PATIENT REGARDING YEAR PATIENT STATED 1987, ABLE TO STATE PLACE AND NAME. SKIN WARM AND DRY TO TOUCH. HOB ELEVATED. SIDE RAILS UP AND LOCKED. BED KEPT AT LOWEST POSITION. CALL LIGHT KEPT WITHIN EASY REACH. WILL CONTINUE TO MONITOR.
[2017-03-29 20:00] VITALS: BP 144/69
[2017-03-29] MEDS: ZOLPIDEM TARTRATE 5 MG TABLET PO PRN (23:54)
[2017-03-30 04:00] VITALS: BP 131/75
[2017-03-30] MEDS: PIPERACILLIN /TAZOBACTAM 3.375 G in IV D5W 50 ML IV SCH ×3 (05:43→17:43)
[2017-03-30] MEDS: Potassium Chloride 20 MEQ in IV D5W 1,000 ML IV PRN (05:43)
[2017-03-30] MEDS: BLOOD SUGAR DIAGNOSTIC 1 EACH STRIP IN SCH ×2 (05:49→12:00)
--- NOTE | 2017-03-30 06:47 | NUR ---
MS RN CLOSING NOTES NO SIGNIFICANT CHANGES OVERNIGHT. PATIENT NEEDS FREQUENT REMINDERS. NO RESPIRATORY DISTRESS NOTED ON 3LPMO2 VIA NC. ALL NEEDS ANTICIPATED AND MET. SITTER AT BEDSIDE. KEPT CLEAN AND DRY. TURNED AND REPOSITIONED Q2 AND PRN. F/C PATENT AND INTACT, DRAINING BY GRAVITY. FLEXISEAL IN PLACE. HOB ELEVATED. SIDE RAILS UP AND LOCKED. PATIENT REFUSING DVT PUMPS AT THIS TIME. WITH LISA MIDLINE IN PLACE WITH IVF RUNNING ORDERED. CALL LIGHT KEPT WITHIN EASY REACH. WILL ENDORSE CONTINUITY OF CARE TO AM NURSE.
[2017-03-30 08:00] VITALS: BP 128/70
[2017-03-30] MEDS: BOOST GLUCOSE CONTROL VANILLA 237 ML BOX PO SCH ×2 (08:23→17:41)
[2017-03-30] MEDS: PANTOPRAZOLE 40 MG VIAL IV SCH (08:24)
[2017-03-30] MEDS: diphenhydrAMINE HCL ELIX 25 MG/10 ML UDC NG SCH ×2 (08:24→17:41)
[2017-03-30] MEDS: ENOXAPARIN SODIUM 30 MG/0.3 ML DISP.SYRIN SQ SCH (08:27)
[2017-03-30] MEDS: HALOPERIDOL LACTATE 10 MG/5 ML UDC NG SCH ×2 (08:28→17:43)
[2017-03-30 09:23] VITALS: BP 102/67
[2017-03-30] MEDS: INSULIN REGULAR, HUMAN 100 UNIT/ML 3 ML VIAL SQ PRN (11:58)
--- NOTE | 2017-03-30 18:17 | NUR ---
PT.TRANSFERED TO PSYCHE UNIT.NOT IN DISTRESS NOTED.
[2017-03-30] MEDS ORDERED: *INSULIN REGULAR(HUMULIN R)HUM 100 UNIT/ML VIAL SQ PRN (23:30)
[2017-03-30] MEDS ORDERED: DEXTROSE 50%-WATER 50 ML DISP.SYRIN IV PRN (23:30)
[2017-03-30] MEDS ORDERED: INSULIN REGULAR, HUMAN 100 UNIT/ML 3 ML VIAL SQ PRN (23:30)
[2017-03-31] MEDS ORDERED: BLOOD SUGAR DIAGNOSTIC 1 EACH STRIP VI SCH (07:30)
== END 2017-03-30 18:14 | DRG 917 ==
LOC: ER 13:47 → TELE-TD 16:35 → ICUOV 03-22 08:12 → TELE1 03-27 09:59 → MEDSG1 03-29 08:52
PROVIDERS: ADMIT Internal Medicine; ATTEND Internal Medicine
PROC: 5A09457 Assistance with Respiratory Ventilation, 24-96 Consecutive Hours, Continuous Positive Airway Pressure (ICD-10-PCS; principal; 2017-03-22)
PROC: 05H933Z Insertion of Infusion Device into Right Brachial Vein, Percutaneous Approach (ICD-10-PCS; 2017-03-22)
PROC: 05H533Z Insertion of Infusion Device into Right Subclavian Vein, Percutaneous Approach (ICD-10-PCS; 2017-03-28)
DX: T42.4X2A Poisoning by benzodiazepines, intentional self-harm, initial encounter (principal); G92 Toxic encephalopathy; J96.02 Acute respiratory failure with hypercapnia; N17.0 Acute kidney failure with tubular necrosis; J69.0 Pneumonitis due to inhalation of food and vomit; E87.0 Hyperosmolality and hypernatremia; J98.11 Atelectasis; F31.5 Bipolar disorder, current episode depressed, severe, with psychotic features; E78.5 Hyperlipidemia, unspecified; E11.9 Type 2 diabetes mellitus without complications; F41.9 Anxiety disorder, unspecified; D72.829 Elevated white blood cell count, unspecified; E87.6 Hypokalemia; G47.33 Obstructive sleep apnea (adult) (pediatric); R13.10 Dysphagia, unspecified; N18.2 Chronic kidney disease, stage 2 (mild); Y92.481 Parking lot as the place of occurrence of the external cause; I12.9 Hypertensive chronic kidney disease with stage 1 through stage 4 chronic kidney disease, or unspecified chronic kidney disease
CPT/HCPCS: 36415; 36569; 36600; 71010-TC; 76856-TC; 80048-TC; 80053-TC; 80061-TC; 80076-TC; 80202-TC; 80305; 81000-TC; 82140-TC; 82550-TC; 82570-TC; 82803-TC; 82962-TC; 83735-TC; 83970; 84100-TC; 84132-TC; 84155; 84155-TC; 84165; 84300-TC; 85025-TC; 87040-TC; 87081-TC; 87086-TC; 92526; 92611-TC; 93307-TC; 94003-TC; 94760-TC; 94799-TC; 95819-TC; A4217; A4606; A6403; A9563; C9113; G0480; J0360; J1650; J1815; J2060; J2543; J2765; J3370; J3475; J3480; J3490; J7030; J7060; J7070; Q0163; Z7610

== ENCOUNTER 2017-03-30 20:01 | Inpatient (IN) | payer MEDICARE ==
[~2017-03-30] VITALS: Ht 175.3 cm; Wt 69.9 kg
--- NOTE | 2017-03-30 19:00 | NUR ---
GPS/RN NOTE: ADMITTED ROM MED-SURG FLOOR FOR DEPRESSION, DTS AND GD/ PATIENT. ADMITTED ON 5150 HOLD FOR DTS/GD. PER HOLD PATIENT OVERDOSED ON # 30 CLONAZEPAM AND HAVING SUICIDAL IDEAS. PATIENT IS A/O X3, DEPRESSED, STILL HAVING SUICIDAL THOUGHTS WITH LONG HX OF HOSPITALIZATION. AMBULATORY, SHOWS NO S/S OF PAIN, RESPIRATION EVEN, BREATHING [id number] NON-LABORED. SKIN ASSESSMENT DONE. PATIENT SKIN IS INTACT. INVENTORIED BELONGINGS AND CHECKED FOR CONTRABAND, NO CONTRABAND FOUND. VALUABLES PUT IN TO SAFE. PATIENT IS UNDER THE PSYCHIATRIC CARE OF DR. WINTER AND UNDER THE MEDICAL CARE OF DR. LÓPEZ AND SEEN PATIENT, MED RECON DONE, MRSA SCREEN DONE. WILL NOTIFY FAMILY AWARE OF ADMISSION. BED LOCKED AND PLACED ON LOWEST POSITION. WILL CONTINUE TO MONITOR Q 15 MINS. TO MAINTAIN SAFETY.
[~2017-03-30 20:01] MED LIST changes: -ESOM20CA PO; +HYDR50CA PO; +METF500T4 PO; -NORT25CA PO; +PANT40TA2 PO; -PROP20TA22 PO; +TEMA30CA PO; +TRAN10TA PO
[2017-03-30] MEDS ORDERED: MAG HYDROX/AL HYDROX/SIMETH 30 ML UDC PO PRN (21:00)
[2017-03-30] MEDS ORDERED: MAGNESIUM HYDROXIDE 30 ML UDC PO PRN (21:00)
[2017-03-30] MEDS ORDERED: ACETAMINOPHEN 325 MG TABLET PO PRN (21:00)
[2017-03-30] MEDS ORDERED: LOPERAMIDE HCL (2 MG CAP) 2 MG CAPSULE PO ONE ×3 (21:37→23:36)
[2017-03-30] MEDS ORDERED: DEXTROSE 50%-WATER 50 ML DISP.SYRIN IV PRN (22:00)
[2017-03-30] MEDS: LOPERAMIDE HCL (2 MG CAP) 2 MG CAPSULE PO PRN (22:11)
[2017-03-30] MEDS: BLOOD SUGAR DIAGNOSTIC 1 EACH STRIP VI SCH (22:11)
--- NOTE | 2017-03-30 22:12 | NUR ---
GPS/RN NOTE: C/O DIARRHEA, LIQUIDY STOOLS X3, IMODIUM 2 MG CAP 1 PO GIVEN.
[2017-03-30] MEDS: *INSULIN REGULAR(HUMULIN R)HUM 100 UNIT/ML VIAL SQ PRN (22:16)
--- NOTE | 2017-03-30 22:17 | NUR ---
GPS/RN NOTE: ACCUCHECK 145 MG/DL, 2 UNITS REG. INSULIN SC ADMINISTERED.HS SNACKS GIVEN.
[2017-03-30] MEDS: ZOLPIDEM TARTRATE 5 MG TABLET PO PRN (23:44)
[2017-03-31] MEDS: LORAZEPAM 0.5 MG TABLET PO PRN ×2 (00:01→22:08)
--- NOTE | 2017-03-31 00:03 | NUR ---
GPS/RN NOTE: PATIENT FEELING VERY ANXIOUS, SUDDENLY STARTED CRYING, LORAZEPAM 1 MG TAB PO GIVEN.
[2017-03-31] MEDS: LOPERAMIDE HCL (2 MG CAP) 2 MG CAPSULE PO PRN (07:05)
--- NOTE | 2017-03-31 07:06 | NUR ---
GPS/RN NOTE: IMODIUM 2 MG CAP PO GIVEN.
[2017-03-31] MEDS ORDERED: PANTOPRAZOLE 40 MG TABLET.DR PO SCH (07:30)
[2017-03-31 07:45] LABS: ALBUMIN 2.3 g/dL (3.4-5.0); BILIRUBIN,TOTAL 0.3 mg/dL (0.2-1.0); CALCIUM, SERUM 8.9 mg/dL (8.5-10.1); CREATININE 2.3 mg/dL (0.6-1.3); POTASSIUM 3.4 mmol/L (3.5-5.1); TOTAL PROTEIN, SERUM 6.5 g/dL (6.4-8.2)
[2017-03-31] MEDS: BLOOD SUGAR DIAGNOSTIC 1 EACH STRIP VI SCH ×4 (07:52→21:43)
[2017-03-31 07:55] LABS: BASOPHILS % (AUTO) 0.5 % (0.0-2.0); EOSINOPHILS # (AUTO) 0.2 /CMM (0.0-0.7); EOSINOPHILS % (AUTO) 2.2 % (0.0-6.0); HEMATOCRIT 35 % (39-51); HEMOGLOBIN 11.7 g/dL (13.5-17.5); LYMPHOCYTES # (AUTO) 1.3 /CMM (0.8-4.8); LYMPHOCYTES % (AUTO) 12.9 % (20.0-44.0); MEAN CORPUSCULAR HEMOGLOBIN 30 PG (26.0-33.0); MEAN CORPUSCULAR HGB CONC 34 g/dl (31.0-36.0); MEAN CORPUSCULAR VOLUME 90 fL (80-96); MONOCYTES # (AUTO) 1.7 /CMM (0.1-1.30); MONOCYTES % (AUTO) 16.4 % (2.0-12.0); NEUTROPHILS # (AUTO) 6.9 /CMM (1.8-8.9); PLATELET COUNT (AUTO) 337 /CMM (150-450); RDW COEFFICIENT OF VARIATION 13.5 (11.5-15.0); RED BLOOD CELL COUNT(AUTO) 3.86 MIL/uL (4.5-6.0); WHITE BLOOD COUNT (AUTO) 10.1 K/uL (4.3-11.0)
[2017-03-31 08:00] VITALS: BP 115/73
[2017-03-31] MEDS ORDERED: METFORMIN 500 MG TABLET PO SCH (09:00)
[2017-03-31] MEDS ORDERED: hydrOXYzine PAMOATE 50 MG CAPSULE PO SCH (09:00)
[2017-03-31 09:08] LABS: BAND % (MANUAL) 1 % (0.0-5.0); EOSINOPHILS % (MANUAL) 1 % (0-4); LYMPHOCYTES % (MANUAL) 7 % (16-48); MONOCYTES % (MANUAL) 12 % (0-11.0); NEUTROPHILS % (MANUAL) 79 (42-76)
[2017-03-31] MEDS: METFORMIN 500 MG TABLET PO SCH (10:00)
[2017-03-31] MEDS: PANTOPRAZOLE 40 MG TABLET.DR PO SCH (10:00)
--- NOTE | 2017-03-31 11:28 | NUR ---
RN-CO: Dr Springer was paged to obtain an order to D/c bustos cath. Dr Springer ordered to discontinue bustos cath. Noted.
--- NOTE | 2017-03-31 11:41 | NUR ---
RN-CO: Kumar catheter was removed with 700ml of light yellow colored urine. Procedure tolerated well.
[2017-03-31] MEDS ORDERED: POTASSIUM CHLORIDE 10 MEQ TABLET.SA PO ONE (12:00)
--- NOTE | 2017-03-31 12:36 | NUR ---
GPS RN: PATIENT REFUSED PHOTOS OF SKIN ISSUES AND MRSA SWAB X3.
--- NOTE | 2017-03-31 13:21 | NUR ---
GPS RN: PATIENT REFUSED LUNCH, SLIDING SCALE INSULIN COVERAGE NOT ADMINISTERED. BS 196MG/DL. PATIENT IS ASLEEP AT THIS TIME, NO S/S OF DISTRESS. RESPIRATION EVEN AND UNLABORED. CONTINUE TO MONITOR.
[2017-03-31] MEDS: VENLAFAXINE XR 75 MG CAP.SR.24H PO SCH (14:18)
[2017-03-31] MEDS: HALOPERIDOL 5 MG TABLET PO SCH ×2 (14:18→17:05)
[2017-03-31] MEDS ORDERED: POTASSIUM CHLORIDE 20 MEQ TAB.PRT.SR PO ONE (15:00)
--- NOTE | 2017-03-31 15:02 | NUR ---
Initial Discharge: Patient lives home with his mother Vimal Remy [address] [place] [id number]. ([phone]). bottle line worker spoke to patient's mother Jess Begum ([phone]/ [phone]) and stated that patient cannot return home. Patient will possibly need placement. bottle line worker will help form a safe and proper discharge. bottle line worker will provide patient with substance abuse referrals upon discharge.
[2017-03-31 16:33] VITALS: BP 111/61
--- NOTE | 2017-03-31 19:28 | NUR ---
GPS/RN NOTE: PATIENT AWAKE, ALERT, ORIENTED X3, LYING IN BED, DEPRESSED, NO APPARENT DISTRESS NOTED AT THIS TIME. hAS 1:1 SITTER AT THE BEDSIDE FOR SAFETY.
[2017-03-31 20:00] VITALS: BP 104/54
[2017-03-31] MEDS: *INSULIN REGULAR(HUMULIN R)HUM 100 UNIT/ML VIAL SQ PRN (21:32)
[2017-03-31] MEDS: ZOLPIDEM TARTRATE 5 MG TABLET PO PRN (23:44)
[2017-04-01] MEDS: BLOOD SUGAR DIAGNOSTIC 1 EACH STRIP VI SCH ×4 (07:44→21:14)
[2017-04-01] MEDS: INSULIN REGULAR, HUMAN 100 UNIT/ML 3 ML VIAL SQ PRN ×2 (07:44→17:29)
--- NOTE | 2017-04-01 07:45 | NUR ---
GPS RN: PATIENT'S BG IS 131MG/DL. PATIENT REFUSED SLIDING SCALE COVERAGE.
[2017-04-01 08:34] VITALS: BP 111/60
[2017-04-01] MEDS: HALOPERIDOL 5 MG TABLET PO SCH ×2 (09:23→17:24)
[2017-04-01] MEDS: PANTOPRAZOLE 40 MG TABLET.DR PO SCH (09:23)
[2017-04-01] MEDS: METFORMIN 500 MG TABLET PO SCH (09:23)
[2017-04-01] MEDS: VENLAFAXINE XR 75 MG CAP.SR.24H PO SCH (09:23)
--- NOTE | 2017-04-01 11:18 | NUR ---
GPS RN: PATIENT APPEARS LESS DEPRESSED AND MORE INTERACTIVE, AGREED TO TAKE A SHOWER AND RN WAS ABLE TO CONDUCT A FULL BODY ASSESSMENT, WHICH PATIENT HAS BEEN REFUSING SINCE HIS ADMISSION ON 03/30 PM SHIFT. ASSESSMENT REVEALED REDNESS AND EXCORIATION OF THE LOWER BUTTOCKS BILATERALLY, REDNESS IN THE GROIN ARE BILATERALLY AND REDNESS AND PEELING OF THE SCROTAL SKIN. Z GUARD APPLIED ON THE CLEANSED AND DRY SKIN. WOUND CARE CONSULT ORDERED. PATIENT IS AMBULATORY AND CONTINENT. STATES THIS PROBABLY HAPPENED ON THE MEDICAL FLOOR DUE TO "STAYING IN POOP" WHEN HE HAD A ATKINSON CATHETER AND WAS UNABLE TO USE A BATHROOM DUE TO HIS TEMAZEPAM OVERDOSE.
--- NOTE | 2017-04-01 12:04 | NUR ---
GPS RN: PATIENT'S BG IS 159 MG/DL. PATIENT REFUSED SLIDING SCALE COVERAGE.
[2017-04-01 16:11] VITALS: BP 111/62
--- NOTE | 2017-04-01 17:30 | NUR ---
GPS RN: PATIENT'S BG IS 145 MG/DL. PATIENT REFUSED SLIDING SCALE COVERAGE.
[2017-04-01 20:00] VITALS: BP 139/69
[2017-04-01] MEDS: LORAZEPAM 0.5 MG TABLET PO PRN (20:47)
--- NOTE | 2017-04-01 20:47 | NUR ---
GPS/RN NOTE: PATIENT C/O ANXIOUS , LORAZEPAM 1 MG TAB PO PRN GIVEN. PER PT. REQUEST , WILL CONTINUE TO MONITOR.
[2017-04-01] MEDS: ZOLPIDEM TARTRATE 5 MG TABLET PO PRN (22:15)
[2017-04-02] MEDS: BLOOD SUGAR DIAGNOSTIC 1 EACH STRIP VI SCH ×4 (07:39→22:00)
[2017-04-02] MEDS: INSULIN REGULAR, HUMAN 100 UNIT/ML 3 ML VIAL SQ PRN ×2 (07:39→11:53)
[2017-04-02 08:09] VITALS: BP 110/58
[2017-04-02] MEDS: PANTOPRAZOLE 40 MG TABLET.DR PO SCH (08:36)
[2017-04-02] MEDS: VENLAFAXINE XR 75 MG CAP.SR.24H PO SCH (08:36)
[2017-04-02] MEDS: METFORMIN 500 MG TABLET PO SCH (08:36)
[2017-04-02] MEDS: HALOPERIDOL 5 MG TABLET PO SCH ×2 (08:36→16:38)
[2017-04-02] MEDS: Z GUARD REMEDY 2 OZ OINT TP SCH (08:38)
--- NOTE | 2017-04-02 11:50 | NUR ---
RN NOTES: PATIENT IN BED APPEARS TO BE DEPRESSED, REFUSED TO TAKE A SHOWER, BUT AGREED TO APPLY Z-GUARD ON HIS ELAYNE GROIN,BUTTOCKS AND SCROTAL AREA. VISITED BY HIS MOTHER AND REQUESTING THAT SHE WANTS TO SPEAK WITH THE MANAGER ATHLETICS TOMORROW. WILL ENDORSED TO THE INCOMING SHIFT.
[2017-04-02 16:09] VITALS: BP 113/62
--- NOTE | 2017-04-02 17:18 | NUR ---
RN NOTES PT REMAINS CALM AND RESTING COMFORTABLY IN BED. NEEDS ALL ANTICIPATED AND ATTENDED. SITTER AT BEDSIDE.
[2017-04-02] MEDS: LORAZEPAM 0.5 MG TABLET PO PRN (19:19)
--- NOTE | 2017-04-02 19:21 | NUR ---
GPS/RN NOTE: PATIENT C/O ANXIOUS , LORAZEPAM 1 MG TAB PO PRN GIVEN. PER PT. REQUEST , WILL CONTINUE TO MONITOR.
[2017-04-02 21:00] VITALS: BP 117/65
[2017-04-02] MEDS: ZOLPIDEM TARTRATE 5 MG TABLET PO PRN (21:31)
--- NOTE | 2017-04-02 22:06 | NUR ---
RN GPS NOTES PT. REFUSED TO ACCU CHECK FOR AT 2200 ,ENCOURAGED FOR ACCU CHECK STILL REFUSED ,
--- NOTE | 2017-04-02 22:10 | NUR ---
RN GPS NOTES PT. REFUSED TO SKIN REASSESSMENT ,REFUSED TO TAKEN PICTURE FOR MONDAY NIGHT ENCOURAGED STILL REFUSED .
[2017-04-03] MEDS: LORAZEPAM 0.5 MG TABLET PO PRN ×3 (06:29→20:18)
--- NOTE | 2017-04-03 06:32 | NUR ---
GPS/RN NOTE: PATIENT C/O ANXIOUS , LORAZEPAM 1 MG TAB PO PRN GIVEN. PER PT. REQUEST , WILL CONTINUE TO MONITOR
--- NOTE | 2017-04-03 07:25 | NUR ---
RN GPS NOTES PT. SLEPT 7 HOURS , DENIES SI HI AT THIS TIME, NO ACUTE DISTRESS NOTED, ENDORSE TO NEXT SHIFT FOR CONTINUITY OF CARE .
[2017-04-03 07:28] LABS: BASOPHILS % (AUTO) 0.4 % (0.0-2.0); EOSINOPHILS # (AUTO) 0.1 /CMM (0.0-0.7); EOSINOPHILS % (AUTO) 1.5 % (0.0-6.0); HEMATOCRIT 37 % (39-51); HEMOGLOBIN 12.3 g/dL (13.5-17.5); LYMPHOCYTES # (AUTO) 1.7 /CMM (0.8-4.8); LYMPHOCYTES % (AUTO) 20.2 % (20.0-44.0); MEAN CORPUSCULAR HEMOGLOBIN 30 PG (26.0-33.0); MEAN CORPUSCULAR HGB CONC 34 g/dl (31.0-36.0); MEAN CORPUSCULAR VOLUME 91 fL (80-96); MONOCYTES # (AUTO) 0.8 /CMM (0.1-1.30); MONOCYTES % (AUTO) 9.8 % (2.0-12.0); NEUTROPHILS # (AUTO) 5.7 /CMM (1.8-8.9); NEUTROPHILS % (AUTO) 68.1 % (43.0-81.0); PLATELET COUNT (AUTO) 583 /CMM (150-450); RDW COEFFICIENT OF VARIATION 13.3 (11.5-15.0); RED BLOOD CELL COUNT(AUTO) 4.03 MIL/uL (4.5-6.0); WHITE BLOOD COUNT (AUTO) 8.4 K/uL (4.3-11.0)
[2017-04-03 07:52] LABS: ALBUMIN 2.7 g/dL (3.4-5.0); BILIRUBIN,TOTAL 0.3 mg/dL (0.2-1.0); CREATININE 1.8 mg/dL (0.6-1.3); MAGNESIUM 1.9 mg/dL (1.8-2.4); PHOSPHORUS 4.1 mg/dL (2.5-4.9); POTASSIUM 3.9 mmol/L (3.5-5.1); TOTAL PROTEIN, SERUM 6.9 g/dL (6.4-8.2)
[2017-04-03 08:00] VITALS: BP 105/59
[2017-04-03] MEDS: METFORMIN 500 MG TABLET PO SCH ×2 (08:22→16:37)
[2017-04-03] MEDS: PANTOPRAZOLE 40 MG TABLET.DR PO SCH (08:22)
[2017-04-03] MEDS: VENLAFAXINE XR 75 MG CAP.SR.24H PO SCH (08:22)
[2017-04-03] MEDS: HALOPERIDOL 5 MG TABLET PO SCH ×2 (08:22→16:37)
[2017-04-03] MEDS: BLOOD SUGAR DIAGNOSTIC 1 EACH STRIP VI SCH ×4 (08:22→21:42)
--- NOTE | 2017-04-03 09:00 | NUR ---
GPS/RN PATIENT BS 131, REFUSED 2 UNITS INSULIN, EXPLAINED RISKS AND BENEFITS, WILL CONTINUE TO ENCOURAGE TO COMPLY WITH MD REGIMEN.
[2017-04-03] MEDS: Z GUARD REMEDY 2 OZ OINT TP SCH (09:55)
--- NOTE | 2017-04-03 13:53 | NUR ---
WOUND CARE CONSULT: PT PRESENTS WITH RASH AND PEELING SKIN TO PERINEUM, GROIN AND BUTTOCKS, PRESENT ON ADMISSION. RECOMMENDATIONS MADE AND DISCUSSED WITH NURSING STAFF. PT IS AMBULATORY AND CONTINENT. WILL SEE PRN. BOND IN AGREEMENT WITH PLAN OF CARE. Addendum: 04/03/17 at 1354 by CANDIS CRUZ WNDNU Amended: Links added.
[2017-04-03 16:00] VITALS: BP 120/66
[2017-04-03] MEDS: CLOTRIMAZOLE 1% 15 GM TUBE TP SCH ×2 (16:01→17:16)
[2017-04-03] MEDS ORDERED: METFORMIN 500 MG TABLET PO SCH (17:00)
--- NOTE | 2017-04-03 17:15 | NUR ---
GPS/RN ATTEMPTED TO COLLECT STOOL SAMPLE FOR OCCULT BLOOD LAB TESTING HOWEVER, PATIENT DID NOT HAVE ANOTHER BM DURING SHIFT, EXPLAINED TO PATIENT TO NOTIFY STAFF WHEN HE HAS NEXT BM FOR SAMPLE COLLECTION.
[2017-04-03 19:31] VITALS: BP 109/58
--- NOTE | 2017-04-03 20:20 | NUR ---
GPS/RN NOTE: PATIENT C/O ANXIOUS , LORAZEPAM 1 MG TAB PO PRN GIVEN. PER PT. REQUEST , WILL CONTINUE TO MONITOR
[2017-04-03] MEDS: LOPERAMIDE HCL (2 MG CAP) 2 MG CAPSULE PO PRN (20:40)
--- NOTE | 2017-04-03 20:48 | NUR ---
RN GPS NOTES PT. PROVIDED STOOL SPECIMEN SEND TO LAB . PT. C/O DIARRHEA, IMODIUM CAP 2MG PO PRN GIVEN PER PT. REQUEST
[2017-04-03] MEDS: ZOLPIDEM TARTRATE 5 MG TABLET PO PRN (21:41)
--- NOTE | 2017-04-03 21:42 | NUR ---
RN GPS NOTES PT. REFUSED TO ACCU CHECK FOR AT 2200 ,ENCOURAGED FOR ACCU CHECK STILL REFUSED ,
[2017-04-04] MEDS: LORAZEPAM 0.5 MG TABLET PO PRN ×3 (04:37→22:09)
--- NOTE | 2017-04-04 04:43 | NUR ---
GPS/RN NOTE: PATIENT C/O ANXIOUS , LORAZEPAM 1 MG TAB PO PRN GIVEN. PER PT. REQUEST , V/S WNL ,WILL CONTINUE TO MONITOR
--- NOTE | 2017-04-04 06:01 | NUR ---
RN GPS NOTES PT. REFUSED AM LABS ENCOURAGED FOR LABS , EXPLAINED RISKS BENEFITS ,STILL REFUSED.
--- NOTE | 2017-04-04 06:41 | NUR ---
RN GPS NOTES PT. , DENIES SI HI AT THIS TIME NO ACUTE DISTRESS NOTED, ATTENDED ALL NEEDS ANTICIPATED ENDORSE TO NEXT SHIFT FOR CONTINUITY OF CARE .
[2017-04-04] MEDS: PANTOPRAZOLE 40 MG TABLET.DR PO SCH (07:30)
[2017-04-04] MEDS: BLOOD SUGAR DIAGNOSTIC 1 EACH STRIP VI SCH ×4 (07:30→22:00)
[2017-04-04 08:00] VITALS: BP 111/63
[2017-04-04] MEDS: METFORMIN 500 MG TABLET PO SCH ×2 (08:53→16:46)
[2017-04-04] MEDS: VENLAFAXINE XR 75 MG CAP.SR.24H PO SCH (08:53)
[2017-04-04] MEDS: HALOPERIDOL 5 MG TABLET PO SCH ×2 (08:54→16:46)
[2017-04-04] MEDS: CLOTRIMAZOLE 1% 15 GM TUBE TP SCH ×2 (08:55→16:47)
[2017-04-04] MEDS: Z GUARD REMEDY 2 OZ OINT TP SCH (08:56)
[2017-04-04 10:13] LABS: CALCIUM, SERUM 9.2 mg/dL (8.5-10.1); CREATININE 1.8 mg/dL (0.6-1.3); MAGNESIUM 1.8 mg/dL (1.8-2.4); PHOSPHORUS 3.8 mg/dL (2.5-4.9); POTASSIUM 4.1 mmol/L (3.5-5.1)
--- NOTE | 2017-04-04 14:10 | NUR ---
RN NOTE :PATIENT C/O ANXIETY MEDICATED WITH ATIVAN 1MG .
[2017-04-04 16:00] VITALS: BP 121/71
[2017-04-04] MEDS: LOPERAMIDE HCL (2 MG CAP) 2 MG CAPSULE PO PRN ×2 (16:46→20:43)
--- NOTE | 2017-04-04 19:21 | NUR ---
GPS/RN NOTE: PATIENT LYING IN BED ON SIDE LYING POSITION, AWAKE, ALERT, ORIENTED X3. NO ACUTE DISTRESS NOTED.
[2017-04-04] MEDS: ZOLPIDEM TARTRATE 5 MG TABLET PO PRN ×2 (20:43→23:18)
[2017-04-04 20:47] VITALS: BP 117/69
--- NOTE | 2017-04-04 22:10 | NUR ---
GPS/RN NOTE: FEELING VEY ANXIOUS, LORAZEPAM 1 MG PO GIVEN
--- NOTE | 2017-04-04 22:11 | NUR ---
GPS/RN NOTE: PATIENT REQUESTING FOR SLEEPING PILL, AMBIEN 5 MG TAB PO GIVEN.
--- NOTE | 2017-04-04 22:15 | NUR ---
GPS/RN NOTE: C/O CHEST DISCOMFORT, TYLENOL 650 MG TAB PO GIVEN.
--- NOTE | 2017-04-04 23:14 | NUR ---
GPS/RN NOTE: PATIENT STATED THAT 5 MG OF AMBIEN TAB IS NOT WORKING FOR HIM REQUESTING FOR ANOTHER 5 MG. PAGED AND SPOKE TO DR. CORDELIA MD ORDERED AN EXTRA DOSE OF 5 MG AMBIEN.
--- NOTE | 2017-04-04 23:18 | NUR ---
GPS/RN NOTE: EXTRA DOSE OF AMBIEN 5 MG TAB PO GIVEN PER MD'S ORDER.
[2017-04-04] MEDS ORDERED: ZOLPIDEM TARTRATE 5 MG TABLET ONE (23:29)
[2017-04-04] MEDS ORDERED: ZOLPIDEM TARTRATE 5 MG TABLET PO ONE (23:30)
--- NOTE | 2017-04-05 07:17 | NUR ---
GPS/RN NOTE: ACCUCHECK NOT DONE, PATIENT ASLEEP.
[2017-04-05] MEDS: PANTOPRAZOLE 40 MG TABLET.DR PO SCH (07:30)
[2017-04-05] MEDS: BLOOD SUGAR DIAGNOSTIC 1 EACH STRIP VI SCH ×4 (07:30→21:49)
[2017-04-05 08:00] VITALS: BP 129/89
[2017-04-05] MEDS: VENLAFAXINE XR 75 MG CAP.SR.24H PO SCH (09:03)
[2017-04-05] MEDS: LORAZEPAM 0.5 MG TABLET PO PRN ×2 (09:03→17:11)
[2017-04-05] MEDS: HALOPERIDOL 5 MG TABLET PO SCH ×2 (09:03→17:11)
--- NOTE | 2017-04-05 09:03 | NUR ---
RN NOTES PATIENT STATED "I HAVE ANXIETY ". MEDICATED WITH ATIVAN 1MG ,WILL CONTINUE TO MONITOR FOR ANXIETY ".
[2017-04-05] MEDS: CLOTRIMAZOLE 1% 15 GM TUBE TP SCH ×2 (09:05→17:12)
[2017-04-05] MEDS: Z GUARD REMEDY 2 OZ OINT TP SCH (09:06)
[2017-04-05] MEDS ORDERED: VENLAFAXINE XR 150 MG CAP.SR.24H PO SCH (12:00)
[2017-04-05 12:18] LABS: CALCIUM, SERUM 9.3 mg/dL (8.5-10.1); CREATININE 1.7 mg/dL (0.6-1.3); POTASSIUM 4.2 mmol/L (3.5-5.1)
--- NOTE | 2017-04-05 15:11 | NUR ---
therapeutic program worker faxed [facility] admissions ( / ) [phone] [place] [address]. therapeutic program worker will follow-up.
[2017-04-05 16:00] VITALS: BP 100/60
--- NOTE | 2017-04-05 17:13 | NUR ---
GPS/RN NOTE: PATIENT C/O ANXIETY, LORAZEPAM 1 MG TAB PO PRN GIVEN.will CONTINUE TO MONITOR.
--- NOTE | 2017-04-05 18:04 | NUR ---
RN-CO: Patient remains depressed but denied suicidal plan.
[2017-04-05 20:05] VITALS: BP 129/79
[2017-04-05] MEDS: TEMAZEPAM 15 MG CAPSULE PO PRN (21:25)
--- NOTE | 2017-04-05 21:50 | NUR ---
RN GPS NOTES PT. REFUSED TO ACCU CHECK FOR AT 2200 ,ENCOURAGED FOR ACCU CHECK STILL REFUSED ,
--- NOTE | 2017-04-05 23:00 | NUR ---
RN GPS NOTES PT. WAS C/O INSOMNIA AND PT. WAS REQUESTING REPEAT DOSE OF TEMAZEPAM 15 MG , AND NOTIFIED DR. STOREY FOR [PT REQUEST DOSE , RECEIVED NEW ODERS TEZEPAM 15 MG PO PRN X1 REPEAT DOSE , NEW ODERS RECEIVED AND CARRIED OUT .
[2017-04-05] MEDS ORDERED: TEMAZEPAM 15 MG CAPSULE ONE (23:09)
[2017-04-06] MEDS: LORAZEPAM 0.5 MG TABLET PO PRN ×3 (04:11→22:20)
--- NOTE | 2017-04-06 05:45 | NUR ---
GPS/RN NOTE: AT 410 PATIENT C/O ANXIOUS , LORAZEPAM 1 MG TAB PO PRN GIVEN. PER PT. REQUEST , V/S WNL ,WILL CONTINUE TO MONITOR
--- NOTE | 2017-04-06 06:50 | NUR ---
RN GPS NOTES PT. REFUSED AM LABS ENCOURAGED FOR LABS , EXPLAINED RISKS BENEFITS ,STILL REFUSED.
[2017-04-06] MEDS: BLOOD SUGAR DIAGNOSTIC 1 EACH STRIP VI SCH ×4 (07:30→22:07)
[2017-04-06] MEDS: PANTOPRAZOLE 40 MG TABLET.DR PO SCH (08:12)
--- NOTE | 2017-04-06 08:14 | NUR ---
HOSPICE ADMINISTRATOR=-NOTES PATIENT REFUSED ACCU-CHECK DESPITE EXPLANATIONS OF THE RISK AND BENEFITS. OFFERED X3.
[2017-04-06] MEDS: VENLAFAXINE XR 150 MG CAP.SR.24H PO SCH (08:33)
[2017-04-06] MEDS: HALOPERIDOL 5 MG TABLET PO SCH ×2 (08:34→16:18)
[2017-04-06] MEDS: Z GUARD REMEDY 2 OZ OINT TP SCH (08:34)
[2017-04-06 08:48] LABS: CALCIUM, SERUM 9.3 mg/dL (8.5-10.1); CREATININE 1.7 mg/dL (0.6-1.3); MAGNESIUM 1.8 mg/dL (1.8-2.4); PHOSPHORUS 3.8 mg/dL (2.5-4.9); POTASSIUM 4.2 mmol/L (3.5-5.1)
[2017-04-06] MEDS: CLOTRIMAZOLE 1% 15 GM TUBE TP SCH ×2 (09:11→16:55)
--- NOTE | 2017-04-06 14:00 | NUR ---
WAITER/WAITRESS DINING CAR-NOTES PER CHARGE NURSE PATIENT REQUESTING ATIVAN FOR HIS ANXIETY. CHARGE NURSE ADMINISTER 1MG P.O PRN ORDER. WILL CONT. MONITORING Q15 MINS. FOR SAFETY AND BEHAVIOR.
[2017-04-06 16:00] VITALS: BP 134/85
[2017-04-06] MEDS: hydrOXYzine PAMOATE 25 MG CAPSULE PO PRN (18:46)
--- NOTE | 2017-04-06 18:49 | NUR ---
POUNCING MACHINE OPERATOR-NOTES PATIENT STATED " I'M STILL ANXIOUS CAN I NEED SOMETHING FOR IT". VISTARIL 50MG P.O GIVEN PRN ORDER. WILL CONT. MONITORING FOR SAFETY AND BEHAVIOR.
[2017-04-06] MEDS ORDERED: TEMAZEPAM 15 MG CAPSULE PO ONE (22:00)
[2017-04-06] MEDS: FLUVOXAMINE MALEATE 50 MG TABLET PO SCH (22:06)
[2017-04-06] MEDS: TEMAZEPAM 15 MG CAPSULE PO PRN (22:07)
[2017-04-07] MEDS: BLOOD SUGAR DIAGNOSTIC 1 EACH STRIP VI SCH ×4 (07:29→22:14)
[2017-04-07] MEDS: PANTOPRAZOLE 40 MG TABLET.DR PO SCH (07:59)
[2017-04-07 08:00] VITALS: BP 104/61
[2017-04-07] MEDS: LORAZEPAM 0.5 MG TABLET PO PRN ×2 (08:00→16:17)
[2017-04-07] MEDS: VENLAFAXINE XR 150 MG CAP.SR.24H PO SCH (08:00)
[2017-04-07] MEDS: CLOTRIMAZOLE 1% 15 GM TUBE TP SCH ×2 (08:00→16:18)
[2017-04-07] MEDS: HALOPERIDOL 5 MG TABLET PO SCH ×2 (08:01→16:17)
[2017-04-07] MEDS: Z GUARD REMEDY 2 OZ OINT TP SCH (08:03)
[2017-04-07 12:02] LABS: CALCIUM, SERUM 9.3 mg/dL (8.5-10.1); CREATININE 1.8 mg/dL (0.6-1.3); POTASSIUM 4.3 mmol/L (3.5-5.1)
--- NOTE | 2017-04-07 12:06 | NUR ---
eligibility worker spoke to December from [facility] ( / ) [phone] [place] [address]. Who stated that they could not accept the patient at the moment due to patients suicidal ideations.
--- NOTE | 2017-04-07 12:11 | NUR ---
area field worker spoke to patient and patient's mother Jess Begum ([phone]/ ) who both stated that they did not want patient to be placed in a assisted facility. Patient stated that he would not go to a assisted facility and would rather go to a residential treatment program for mental health or go home. Patient's mother agreed with patient regarding discharge plan. area field worker will follow-up.
[2017-04-07] MEDS: hydrOXYzine PAMOATE 25 MG CAPSULE PO PRN ×2 (12:28→20:39)
--- NOTE | 2017-04-07 16:00 | NUR ---
direct service worker contacted [facility] ([phone]) to inquire whether they have a residential treatment program available. Per Kellie, at [facility] patient's must be conserved and referred through the [facility]. Kellie also stated that they do not bill medicare or medical. Therefore patient will not qualify for this program.
[2017-04-07 16:06] VITALS: BP 112/74
--- NOTE | 2017-04-07 16:06 | NUR ---
side door worker contacted [facility] ([phone]) and [facility] in [place] ([phone]). However, there was no answer. side door worker left a message with her contact information. side door worker will follow-up.
--- NOTE | 2017-04-07 16:11 | NUR ---
environmental maintenance worker contacted [facility] ([phone]) and spoke to Wai who requested a psych evaluation and medication list to be faxed ([phone]). environmental maintenance worker followed up with Wai after faxing the paperwork. Wai stated that they did not have a bed available today but may have a bed available next week. However, he stated that he had to do a phone interview with the patient before he could accept the patient. environmental maintenance worker agreed to call Wai after speaking with the patient. environmental maintenance worker spoke to patient regarding [facility] and told the patient that they wanted to speak to him through a phone interview. Patient stated that he has been to [facility] before and would not go back and declined to do the phone interview. environmental maintenance worker will notify wai.
[2017-04-07] MEDS ORDERED: LORAZEPAM 1 MG TABLET PO ONE (18:30)
[2017-04-07 20:00] VITALS: BP 116/69
[2017-04-07] MEDS: FLUVOXAMINE MALEATE 50 MG TABLET PO SCH (20:39)
[2017-04-07] MEDS: *INSULIN REGULAR(HUMULIN R)HUM 100 UNIT/ML VIAL SQ PRN (21:33)
--- NOTE | 2017-04-07 21:33 | NUR ---
GPS/NUCLEAR MONITORING TECHNICIAN NOTES: ACCUCHECK DONE. BS NOTED AT 135. PT. REFUSED HS INSULIN SLIDING SCALE COVERAGE. OFFERED 3X. EXPLAINED RISK AND BENEFITS. PT. STILL REFUSED. WILL CONTINUE TO MONITOR.
[2017-04-07] MEDS: TEMAZEPAM 15 MG CAPSULE PO PRN (21:36)
[2017-04-08] MEDS: LORAZEPAM 0.5 MG TABLET PO PRN ×2 (00:56→12:07)
--- NOTE | 2017-04-08 07:45 | NUR ---
GPS RN: PATIENT REFUSED SLIDING SCALE COVERAGE FOR BS 158MG/DL, NOT IN ANY DISTRESS, CONTINUE TO MONITOR.
[2017-04-08] MEDS: BLOOD SUGAR DIAGNOSTIC 1 EACH STRIP VI SCH ×4 (07:57→21:21)
[2017-04-08] MEDS: INSULIN REGULAR, HUMAN 100 UNIT/ML 3 ML VIAL SQ PRN ×2 (07:57→16:51)
[2017-04-08 08:00] VITALS: BP 113/65
[2017-04-08] MEDS: HALOPERIDOL 5 MG TABLET PO SCH ×2 (08:29→16:47)
[2017-04-08] MEDS: PANTOPRAZOLE 40 MG TABLET.DR PO SCH (08:29)
[2017-04-08] MEDS: VENLAFAXINE XR 75 MG CAP.SR.24H PO SCH (08:29)
[2017-04-08] MEDS: Z GUARD REMEDY 2 OZ OINT TP SCH (08:32)
[2017-04-08] MEDS: CLOTRIMAZOLE 1% 15 GM TUBE TP SCH ×2 (08:32→16:51)
--- NOTE | 2017-04-08 12:12 | NUR ---
GPS RN: ATIVAN 1MG ADMINISTERED PO PER PATIENT'S REQUEST FOR C/O ANXIETY AND RESTLESSNESS.
[2017-04-08] MEDS: hydrOXYzine PAMOATE 25 MG CAPSULE PO PRN ×2 (14:58→21:28)
--- NOTE | 2017-04-08 15:01 | NUR ---
GPS RN: VISTARIL 50MG ADMINISTERED PO PER PATIENT REQUEST FOR C/O ANXIETY. VSS, CONTINUE TO MONITOR.
[2017-04-08 16:00] VITALS: BP 125/76
--- NOTE | 2017-04-08 16:52 | NUR ---
GPS RN: BS @1730 135MG/DL, PATIENT REFUSED INSULIN COVERAGE.
[2017-04-08 20:00] VITALS: BP 118/75
[2017-04-08] MEDS: *INSULIN REGULAR(HUMULIN R)HUM 100 UNIT/ML VIAL SQ PRN (21:21)
--- NOTE | 2017-04-08 21:22 | NUR ---
PT'S BS 173 MG/DL. PATIENT REFUSED INSULIN COVERAGE. WILL CONTINUE TO MONITOR FOR S/SX OF HYPO/HYPERGLYCEMIA.
[2017-04-08] MEDS: TEMAZEPAM 15 MG CAPSULE PO PRN ×2 (21:28→21:58)
[2017-04-08] MEDS: FLUVOXAMINE MALEATE 50 MG TABLET PO SCH (21:28)
[2017-04-08] MEDS ORDERED: TEMAZEPAM 15 MG CAPSULE PO ONE (22:30)
[2017-04-08] MEDS ORDERED: TEMAZEPAM 15 MG CAPSULE ONE (23:45)
--- NOTE | 2017-04-09 07:23 | NUR ---
[id number]: BLOOD SUGAR IS 127 MG/DL AND NO INSULIN COVERAGE REQUIRED AT THIS TIME
[2017-04-09 08:20] VITALS: BP 115/76
[2017-04-09] MEDS: VENLAFAXINE XR 75 MG CAP.SR.24H PO SCH (09:06)
[2017-04-09] MEDS: CLOTRIMAZOLE 1% 15 GM TUBE TP SCH ×2 (09:06→16:34)
[2017-04-09] MEDS: PANTOPRAZOLE 40 MG TABLET.DR PO SCH (09:06)
[2017-04-09] MEDS: HALOPERIDOL 5 MG TABLET PO SCH ×2 (09:06→16:33)
[2017-04-09] MEDS: BLOOD SUGAR DIAGNOSTIC 1 EACH STRIP VI SCH ×4 (09:08→21:16)
[2017-04-09] MEDS: Z GUARD REMEDY 2 OZ OINT TP SCH (09:25)
--- NOTE | 2017-04-09 10:00 | NUR ---
[id number]: PT IS GUARDED, ISOLATIVE, WITHDRAWN, ANXIOUS, RESTLESS. ENCOURAGE PT TO VERBALIZE EMOTIONS AND CONCERNS. PT DENIES SI/HI. ENCOURAGE PT TO PARTICIPATE IN GROUP ACTIVITY. WILL CONTINUE TO MONITOR FOR SAFETY AND BEHAVIOR EVERY 15 MINUTES.
--- NOTE | 2017-04-09 12:09 | NUR ---
[id number]: BLOOD SUGAR IS 166 MG/DL AND PT REFUSED INSULIN AT THIS TIME. OFFERED 3X. DISCUSS THE IMPORTANCE OF BEING COMPLIANT WITH MEDICATIONS AND THE USAGE AND SIDE EFFECTS.
[2017-04-09 12:10] LABS: CALCIUM, SERUM 9.7 mg/dL (8.5-10.1); CREATININE 1.7 mg/dL (0.6-1.3); POTASSIUM 4.1 mmol/L (3.5-5.1)
[2017-04-09] MEDS: LORAZEPAM 0.5 MG TABLET PO PRN ×2 (12:52→21:16)
[2017-04-09 16:00] VITALS: BP 112/60
--- NOTE | 2017-04-09 16:50 | NUR ---
[id number]: BLOOD SUGAR IS 116 MG/DL AND NO INSULIN REQUIRED AT THIS TIME
[2017-04-09 19:53] VITALS: BP 133/75
[2017-04-09] MEDS: hydrOXYzine PAMOATE 25 MG CAPSULE PO PRN (20:08)
[2017-04-09] MEDS: FLUVOXAMINE MALEATE 50 MG TABLET PO SCH (21:16)
[2017-04-09] MEDS: *INSULIN REGULAR(HUMULIN R)HUM 100 UNIT/ML VIAL SQ PRN (21:20)
[2017-04-09] MEDS: TEMAZEPAM 15 MG CAPSULE PO PRN (22:00)
--- NOTE | 2017-04-09 22:00 | NUR ---
GPS RN: PATIENT REFUSED TO HAVE WEEKLY SKIN ASSESSMENT PICTURES TAKEN. PER PATIENT "I DON'T NEED TO DO IT", "MY SKIN IS OKAY". ENCOURAGED PATIENT TO PRACTICE PROPER SKIN HYGIENE. WILL ENDORSE TO NEXT SHIFT NURSE.
[2017-04-10 08:00] VITALS: BP 122/71
[2017-04-10] MEDS: BLOOD SUGAR DIAGNOSTIC 1 EACH STRIP VI SCH ×4 (08:15→22:32)
[2017-04-10] MEDS: VENLAFAXINE XR 75 MG CAP.SR.24H PO SCH (08:16)
[2017-04-10] MEDS: PANTOPRAZOLE 40 MG TABLET.DR PO SCH (08:16)
[2017-04-10] MEDS: HALOPERIDOL 5 MG TABLET PO SCH ×2 (08:16→16:29)
[2017-04-10] MEDS: Z GUARD REMEDY 2 OZ OINT TP SCH (08:20)
[2017-04-10] MEDS: CLOTRIMAZOLE 1% 15 GM TUBE TP SCH ×2 (08:20→16:30)
--- NOTE | 2017-04-10 10:44 | NUR ---
[id number]: DR. AMEZCUA WANTS STAFF TO ENCOURAGE FLUID INTAKE. ORDERED PLACED AND CARRIED OUT.
[2017-04-10] MEDS: LORAZEPAM 0.5 MG TABLET PO PRN ×2 (11:56→20:06)
--- NOTE | 2017-04-10 11:56 | NUR ---
RCM-ST-[id number]: BLOOD SUGAR IS 116 MG/DL AND NO INSULIN REQUIRED AT THIS TIME. Addendum: 04/10/17 at 1415 by MICHELLE KENDRICK RN THE TIME IS INCORRECT THE ACTUAL TIME IS 0705
--- NOTE | 2017-04-10 11:56 | NUR ---
DYH-RR-[id number]: GAVE ATIVAN 1 MG PO DUE TO SEVERE ANXIETY UPON PT REQUEST AND WILL CONTINUE TO MONITOR FOR EFFECTIVENESS OF MEDICATION
--- NOTE | 2017-04-10 12:08 | NUR ---
TKI-CV-DQXVT: BLOOD SUGAR IS 98 MG/DL AND NO INSULIN REQUIRED AT THIS TIME
[2017-04-10 16:00] VITALS: BP 111/76
--- NOTE | 2017-04-10 16:34 | NUR ---
SYP-PO-WTTWX: BLOOD SUGAR IS 118 MG/DL AND NO INSULIN REQUIRED AT THIS TIME.
[2017-04-10] MEDS: hydrOXYzine PAMOATE 25 MG CAPSULE PO PRN (18:08)
--- NOTE | 2017-04-10 18:08 | NUR ---
YOQ-HI-QIHPR: GAVE VISTARIL 50 MG PO DUE TO ANXIETY UPON PT REQUEST AND WILL CONTINUE TO MONITOR FOR EFFECTIVENESS OF MEDICATION
[2017-04-10 19:39] VITALS: BP 135/76
[2017-04-10] MEDS: FLUVOXAMINE MALEATE 50 MG TABLET PO SCH (22:30)
[2017-04-10] MEDS: TEMAZEPAM 15 MG CAPSULE PO PRN (22:31)
[2017-04-11] MEDS: LORAZEPAM 0.5 MG TABLET PO PRN ×2 (03:42→22:51)
[2017-04-11] MEDS: BLOOD SUGAR DIAGNOSTIC 1 EACH STRIP VI SCH ×4 (07:37→21:11)
[2017-04-11] MEDS: PANTOPRAZOLE 40 MG TABLET.DR PO SCH (07:49)
--- NOTE | 2017-04-11 07:59 | NUR ---
CAI-EJ-RAFQO: BLOOD SUGAR IS 114 MG/DL AND NO INSULIN REQUIRED AT THIS TIME.
[2017-04-11 08:00] VITALS: BP 102/66
[2017-04-11] MEDS: Z GUARD REMEDY 2 OZ OINT TP SCH (08:04)
[2017-04-11] MEDS: HALOPERIDOL 5 MG TABLET PO SCH ×2 (08:04→16:01)
[2017-04-11] MEDS: CLOTRIMAZOLE 1% 15 GM TUBE TP SCH ×2 (08:04→16:04)
[2017-04-11] MEDS: VENLAFAXINE XR 75 MG CAP.SR.24H PO SCH (08:04)
--- NOTE | 2017-04-11 12:00 | NUR ---
SVP-CB-[id number]: BLOOD SUGAR IS 164 MG/DL AND PT REFUSED INSULIN EVEN AFTER EXPLAINING THE BENEFITS OF BEING COMPLIANT WITH MEDICATIONS.
--- NOTE | 2017-04-11 12:38 | NUR ---
grease machine worker contacted Laura from [facility] ([phone]) [address] [facility] [address]. Laura stated that their program is a substance abuse program and they do not accept Medicare. grease machine worker spoke to patient who stated that he would not go there since he does not have any substance abuse.
--- NOTE | 2017-04-11 13:00 | NUR ---
fat purification worker contacted the [facility] ([phone]) [address] [facility] [address] and spoke to Mitzi who stated that unfortunately they are unable to help the patient as they are mainly a substance abuse rehab center and do not accept Medicare.
--- NOTE | 2017-04-11 13:05 | NUR ---
instrument worker spoke to patient regarding [facility] ([phone]) Joselin Remy. [address] [facility] facility in [place]. Patient stated that he would not go there if it was a residential treatment program.
--- NOTE | 2017-04-11 13:23 | NUR ---
drug department worker contacted [facility] ([phone]) and spoke to Kyleigh regarding their Mental health Outpatient Program and she stated that the patient would have to go in for an intake appointment offered 24 hours a day, as they do not do not provide phone interviews nor do they accept patient's over the phone. Kyleigh also stated that they do accept medicare.
--- NOTE | 2017-04-11 13:58 | NUR ---
harvest worker field crop faxed intake packet to Falguni from intake (phone:[phone]/ ) for the outpatient program at [facility] [address] [place] [phone]. harvest worker field crop will follow-up.
--- NOTE | 2017-04-11 14:14 | NUR ---
before and after school daycare worker spoke to Falguni from intake (phone:[phone]/ ) for the outpatient program at [facility] [address] [place] [phone]. Fal[facility]i stated that unfortunately they could not accept the patient for their outpatient program at this time stating that it was an administrative decision.
[2017-04-11 16:00] VITALS: BP 119/76
[2017-04-11] MEDS: hydrOXYzine PAMOATE 25 MG CAPSULE PO PRN (16:01)
--- NOTE | 2017-04-11 16:35 | NUR ---
UBI-MO-[id number]: BLOOD SUGAR IS 148 MG/DL AND PT REFUSED TO TAKE INSULIN EVEN AFTER EXPLAINING THE BENEFITS OF BEING COMPLIANT WITH MEDICATIONS.
--- NOTE | 2017-04-11 16:45 | NUR ---
Recreation Therapy Note: During past week 04/03 - 04/07/2017 recreation therapist met with patient and mother and discussed past leisure activities and hobbies that the patient found enjoyable. Pt. stated, "I used to go out on a sail boat." He enjoyed it and times with friends. On another occasion we discussed personal leisure goals to help motivate to enjoy meaningful life activities. Unfortunately patient still communicated thoughts of hopelessness and an unwillingness to pursue a better quality of life.
--- NOTE | 2017-04-11 20:40 | NUR ---
GPS RN NOTE: PATIENT REQUEST IF HIS BLOOD SUGAR CAN BE CHECKED AT THIS TIME BECAUSE PER PATIENT HE IS REALLY HUNGRY AND HE WANTS TO EAT AND SLEEP AFTER. EXPLAINED ABOUT THE SCHEDULE OF ACCUCHECK, BUT PATIENT STILL INSISTED. BS CHECKED PER PATIENT REQUEST = 152 AND PATIENT REFUSED COVERAGE. EXPLAINED THE RISK AND BENEFIT BUT PATIENT STILL REFUSED. WILL CONTINUE TO MONITOR.
[2017-04-11] MEDS: TEMAZEPAM 15 MG CAPSULE PO PRN (21:10)
[2017-04-11] MEDS: FLUVOXAMINE MALEATE 50 MG TABLET PO SCH (21:11)
[2017-04-11 21:13] VITALS: BP 109/69
[2017-04-12] MEDS: BLOOD SUGAR DIAGNOSTIC 1 EACH STRIP VI SCH ×4 (07:30→21:30)
--- NOTE | 2017-04-12 07:30 | NUR ---
REFUSED AM VITALS.
--- NOTE | 2017-04-12 08:00 | NUR ---
PT. REFUSED AM GLUCOSE.
[2017-04-12] MEDS: VENLAFAXINE XR 75 MG CAP.SR.24H PO SCH (09:54)
[2017-04-12] MEDS: PANTOPRAZOLE 40 MG TABLET.DR PO SCH (09:54)
[2017-04-12] MEDS: Z GUARD REMEDY 2 OZ OINT TP SCH (09:55)
[2017-04-12] MEDS: CLOTRIMAZOLE 1% 15 GM TUBE TP SCH ×2 (09:55→18:16)
[2017-04-12] MEDS: HALOPERIDOL 5 MG TABLET PO SCH ×2 (09:55→18:16)
--- NOTE | 2017-04-12 11:30 | NUR ---
MED COMPLIANT,VERY FLAT AFFECT.
[2017-04-12] MEDS: LORAZEPAM 0.5 MG TABLET PO PRN ×2 (13:07→20:39)
--- NOTE | 2017-04-12 13:31 | NUR ---
MEDICATED FOR NERVOUSNESS WITH ATIVAN PO.
--- NOTE | 2017-04-12 15:00 | NUR ---
DR. STOREY,DR. GRAY IN TO SEE PT.
[2017-04-12 16:00] VITALS: BP 124/70
--- NOTE | 2017-04-12 16:32 | NUR ---
millinery worker spoke to patient's mother Jess Begum ([phone]/ ) and informed her that patient has refused [facility] ([phone]) and their sister facility [facility] ([phone]) [place] [address]. millinery worker also informed Patient's mother Jess Begum that social sciences chair had attempted different outpatient programs including [facility] ([phone]) [address] [facility] [address], [facility] [address] [facility] [address] (who cannot accept the patient to their outpatient program), and [facility] ([phone]) and spoke to Kyleigh who stated that the patient would have to go in for an intake appointment offered 24 hours a day. millinery worker informed patient's mother that patient would like to return home upon discharge. Patient's mother Jess was upset stating, "I cannot believe that no one can do anything to help him, this system does not help people with mental illness" she than agreed that if there is no other option than patient can return home but stated that she cannot pick him up today and the if he is discharged tomorrow they would have to arrange transportation. millinery worker asked patient's mother Jess if she was seeking help her cope. Jess stated that she sees a therapist and a psychologist. millinery worker will follow-up with Jess regarding discharge date. Addendum: 04/14/17 at 1340 by ZHOU WALLACE In the conversation with Jess Begum patient's mother, she was upset that patient would be returning home and stated "if you discharge him home it's like putting a gun in his hand, so that he can kill himself." Patient's mother was unhappy with the discharge plan.
--- NOTE | 2017-04-12 17:28 | NUR ---
REFUSED COVERAGE FOR BLOOD SUGAR.
--- NOTE | 2017-04-12 18:50 | NUR ---
PT. REQUESTING ATIVAN,BUT INFORMED NOT DUE TILL 9 PM.
[2017-04-12 20:00] VITALS: BP 127/83
[2017-04-12] MEDS: FLUVOXAMINE MALEATE 50 MG TABLET PO SCH (21:24)
[2017-04-12] MEDS: TEMAZEPAM 15 MG CAPSULE PO PRN (21:24)
[2017-04-12] MEDS: *INSULIN REGULAR(HUMULIN R)HUM 100 UNIT/ML VIAL SQ PRN (21:30)
[2017-04-13] MEDS: BLOOD SUGAR DIAGNOSTIC 1 EACH STRIP VI SCH ×4 (07:44→21:09)
[2017-04-13 08:00] VITALS: BP 110/70
[2017-04-13] MEDS: HALOPERIDOL 5 MG TABLET PO SCH ×2 (08:45→17:00)
[2017-04-13] MEDS: PANTOPRAZOLE 40 MG TABLET.DR PO SCH (08:46)
[2017-04-13] MEDS: VENLAFAXINE XR 75 MG CAP.SR.24H PO SCH (08:46)
[2017-04-13] MEDS: LORAZEPAM 0.5 MG TABLET PO PRN ×2 (08:46→18:03)
[2017-04-13] MEDS: CLOTRIMAZOLE 1% 15 GM TUBE TP SCH ×2 (08:47→17:00)
[2017-04-13] MEDS: Z GUARD REMEDY 2 OZ OINT TP SCH (08:47)
--- NOTE | 2017-04-13 08:47 | NUR ---
GPS RN: PATIENT IS ANXIOUS REGARDING HIS DISCHARGE AND REQUESTING ATIVAN TO HELP HIM TO CALM DOWN. ADMINISTERED ATIVAN 1MG PO ORDERED. VSS, CONTINUE TO MONITOR THE PATIENT.
--- NOTE | 2017-04-13 13:07 | NUR ---
RN-CO: Patient filed a writ of pippa méndez, Charge nurse filed and verified and patient signed. Dr. Preston made aware. Dr Preston ordered 1:1 for danger to self, noted and carried out.
--- NOTE | 2017-04-13 17:29 | NUR ---
GPS RN: PATIENT REFUSED 1700 MEDS AND ACCUCHECK, STATING "I REALLY DON'T WANT IT". PATIENT IS GUARDED AND UPSET THAT HE WAS NOT DISCHARGED TODAY.
--- NOTE | 2017-04-13 18:09 | NUR ---
GPS RN: PATIENT IS C/O ANXIETY AND ASKING FOR ATIVAN TO HELP HIM TO CALM DOWN. ADMINISTERED ATIVAN 1MG PO ORDERED. VSS, CONTINUE TO MONITOR THE PATIENT.
--- NOTE | 2017-04-13 19:48 | NUR ---
GPS/ASPHALT PAVING FOREMAN NOTES: PT. REFUSED HS VITALS SIGNS. OFFERED 3X. EXPLAINED RISK AND BENEFITS. PT. STILL REFUSED. NO DISTRESS NOTED. WILL CONTINUE TO MONITOR.
[2017-04-13] MEDS: FLUVOXAMINE MALEATE 50 MG TABLET PO SCH (21:05)
[2017-04-13] MEDS: TEMAZEPAM 15 MG CAPSULE PO PRN (21:05)
--- NOTE | 2017-04-13 21:10 | NUR ---
GPS/MANAGER RFID NOTES: PT. REFUSED HS ACCUCHECK. OFFERED 3X. EXPLAINED RISK AND BENEFITS. PT. STILL REFUSED. WILL CONTINUE TO MONITOR.
--- NOTE | 2017-04-13 22:10 | NUR ---
PT REFUSED SLIDING SCALE OF INSULIN. EXPLAIN THE RISK AND BENEFITS OF NOT TAKING IT. PT STILL REFUSED. PT STATES I DON'T NEED IT. WILL CONTINUE TO MONITOR FOR SAFETY.
--- NOTE | 2017-04-13 23:35 | NUR ---
PT REQUESTED FOR ADDITIONAL DOSE OF RESTORIL. PAGED DR. CRUZ FOR REPEAT DOSE OF RESTORIL 7.5MG PO X1. NOTED AND CARRIED OUT. WILL CONTINUE TO MONITOR FOR SAFETY AND BEHAVIOR.
[2017-04-14] MEDS: LORAZEPAM 0.5 MG TABLET PO PRN ×3 (02:33→23:42)
[2017-04-14] MEDS: hydrOXYzine PAMOATE 25 MG CAPSULE PO PRN (05:01)
[2017-04-14] MEDS: BLOOD SUGAR DIAGNOSTIC 1 EACH STRIP VI SCH ×4 (07:40→22:43)
[2017-04-14 08:00] VITALS: BP 113/75
[2017-04-14] MEDS: PANTOPRAZOLE 40 MG TABLET.DR PO SCH (08:37)
[2017-04-14] MEDS: VENLAFAXINE XR 75 MG CAP.SR.24H PO SCH (08:37)
[2017-04-14] MEDS: Z GUARD REMEDY 2 OZ OINT TP SCH (08:37)
[2017-04-14] MEDS: HALOPERIDOL 5 MG TABLET PO SCH ×2 (08:37→16:37)
[2017-04-14] MEDS: CLOTRIMAZOLE 1% 15 GM TUBE TP SCH ×2 (08:37→16:38)
--- NOTE | 2017-04-14 09:30 | NUR ---
RN-CO: Patient remains unmotivated, encouraged to shower but refused.Has blunted affect, very anxious and restless. preoccupied with his discharge. Encouraged to participate in groups but he refused. He remains disheveled and unkempt. Mother came to visit, and insisted she wants to see Dr Preston.
--- NOTE | 2017-04-14 12:30 | NUR ---
DR. STOREY HOLDS A MEETING IN THE CONFERENCE ROOM WITH THE PATIENT, THE PATIENT'S MOTHER IN ATTENDANCE, ALONG WITH NAIL FEEDER, CHARGE NURSE AND PRIMARY IN ATTENDANCE. HE EXPLAINS WHY HE IS GOING TO PLACE PT ON CONSERVATORSHIP, PT AND THE FAMILY IS IN AGGRESSIVE DISAGREEMENT AND DEMANDING TO BE DISCHARGED TODAY. THEY ALREADY REQUESTED FOR [facility], WHICH WILL PROBABLY TAKE PLACE ON MONDAY (2 BUSINESS DAYS).
--- NOTE | 2017-04-14 13:20 | NUR ---
PT REFUSED INSULIN COVERAGE DESPITE THOROUGH EDUCATION ABOUT SLIDING SCALE.
--- NOTE | 2017-04-14 13:44 | NUR ---
A family meeting was held in the conference room with patient, patient's mother, psychiatrist Dr. Preston, Mariam charge nurse, interior surface insulation worker present in attendance, RN Job, and DANIA Arenas. Dr. Preston informed patient of his decision to file for conservatorship. Patient and patient's mother were unhappy with the decision. Patient stated, "this is ridiculous" and kept stating that he wants to be discharged home today with his mother. Patient's mother was unhappy with Dr. Preston stating that he did not consult with her before making the decision to conserve him. Patient's mother stated that she did not want to force the patient to go anywhere he did not want to go and wanted him discharged home, which is what she had previously stated that she did not want. Patient has filed for a writ of [facility].
--- NOTE | 2017-04-14 13:57 | NUR ---
well service floor worker [facility] to [facility] office (phone: [phone]/ [phone]/ ).
--- NOTE | 2017-04-14 13:59 | NUR ---
vault worker received a call from Dre from [employer] stating that she had received the paperwork but needed some corrections. vault worker made the corrections and re-faxed paperwork. Monicaa called to inform social contact worker that she had received the paperwork. Monicaa requested that the 30 day hold date be faxed Monday04/17/17. vault worker will follow-up.
--- NOTE | 2017-04-14 14:04 | NUR ---
galley worker received a call from forensic psychologist Dr. Ayaz Dean ([phone]) and stated that he would be in the writ of [facility] hearing along Dr. Preston and wanted confirmation of the hearing, addiction social worker contacted the unit charge nurse Mariam who stated that they have not heard back from the court. galley worker conveyed the information to Dr. Ayaz Dean and provided him with the contact number for the geriatric psych unit ([phone]) and let him know that he can ask for the charge nurse as she will also be able to provide him with that information.
[2017-04-14 15:56] VITALS: BP 117/80
[2017-04-14 20:00] VITALS: BP 116/72
[2017-04-14] MEDS ORDERED: TEMAZEPAM 7.5 MG CAPSULE ONE (22:35)
[2017-04-14] MEDS: FLUVOXAMINE MALEATE 50 MG TABLET PO SCH (22:42)
[2017-04-14] MEDS: TEMAZEPAM 15 MG CAPSULE PO PRN (22:43)
[2017-04-14] MEDS: *INSULIN REGULAR(HUMULIN R)HUM 100 UNIT/ML VIAL SQ PRN (22:44)
[2017-04-14] MEDS ORDERED: TEMAZEPAM 7.5 MG CAPSULE PO ONE (23:00)
[2017-04-15] MEDS: LORAZEPAM 0.5 MG TABLET PO PRN ×3 (01:45→14:52)
[2017-04-15 07:30] LABS: BASOPHILS # (AUTO) 0.1 /CMM (0.0-0.2); BASOPHILS % (AUTO) 1.3 % (0.0-2.0); EOSINOPHILS # (AUTO) 0.4 /CMM (0.0-0.7); EOSINOPHILS % (AUTO) 3.6 % (0.0-6.0); HEMATOCRIT 41 % (39-51); HEMOGLOBIN 13.7 g/dL (13.5-17.5); LYMPHOCYTES # (AUTO) 2.5 /CMM (0.8-4.8); MEAN CORPUSCULAR HEMOGLOBIN 30 PG (26.0-33.0); MEAN CORPUSCULAR HGB CONC 33 g/dl (31.0-36.0); MEAN CORPUSCULAR VOLUME 89 fL (80-96); MONOCYTES # (AUTO) 0.9 /CMM (0.1-1.30); MONOCYTES % (AUTO) 8.3 % (2.0-12.0); NEUTROPHILS # (AUTO) 7.2 /CMM (1.8-8.9); NEUTROPHILS % (AUTO) 64.8 % (43.0-81.0); PLATELET COUNT (AUTO) 294 /CMM (150-450); RDW COEFFICIENT OF VARIATION 13.3 (11.5-15.0); RED BLOOD CELL COUNT(AUTO) 4.62 MIL/uL (4.5-6.0); WHITE BLOOD COUNT (AUTO) 11.2 K/uL (4.3-11.0)
[2017-04-15] MEDS: BLOOD SUGAR DIAGNOSTIC 1 EACH STRIP VI SCH ×4 (07:30→21:44)
[2017-04-15 07:38] LABS: CALCIUM, SERUM 9.1 mg/dL (8.5-10.1); CREATININE 1.6 mg/dL (0.6-1.3); MAGNESIUM 1.7 mg/dL (1.8-2.4); PHOSPHORUS 4.1 mg/dL (2.5-4.9); POTASSIUM 3.9 mmol/L (3.5-5.1)
[2017-04-15 08:00] VITALS: BP 129/72
[2017-04-15] MEDS: PANTOPRAZOLE 40 MG TABLET.DR PO SCH (08:27)
[2017-04-15] MEDS: HALOPERIDOL 5 MG TABLET PO SCH ×2 (08:27→17:04)
[2017-04-15] MEDS: VENLAFAXINE XR 75 MG CAP.SR.24H PO SCH (08:27)
[2017-04-15] MEDS: CLOTRIMAZOLE 1% 15 GM TUBE TP SCH ×2 (08:29→17:00)
[2017-04-15] MEDS: Z GUARD REMEDY 2 OZ OINT TP SCH (08:29)
--- NOTE | 2017-04-15 14:53 | NUR ---
GPS RN: PATIENT IS ANXIOUS AND RESTLESS, ASKING FOR ATIVAN TO HELP HIM CALM DOWN. ADMINISTERED ATIVAN 1MG PO ORDERED, CONTINUE TO MONITOR.
[2017-04-15] MEDS: MAGNESIUM OXIDE 400 MG TABLET PO SCH (17:03)
[2017-04-15] MEDS: hydrOXYzine PAMOATE 25 MG CAPSULE PO PRN (19:37)
--- NOTE | 2017-04-15 21:40 | NUR ---
PT REQUESTING FOR RESTORIL 15 MG PO. PT STATED ''I CANNOT SLEEP". RESTORIL 15MG PO HS PRN GIVEN ORDERED. WILL CONTINUE TO MONITOR.
[2017-04-15] MEDS: *INSULIN REGULAR(HUMULIN R)HUM 100 UNIT/ML VIAL SQ PRN (21:44)
[2017-04-15] MEDS: TEMAZEPAM 15 MG CAPSULE PO PRN (21:44)
[2017-04-15] MEDS: FLUVOXAMINE MALEATE 50 MG TABLET PO SCH (21:44)
[2017-04-16] MEDS: TEMAZEPAM 7.5 MG CAPSULE PO PRN ×2 (01:55→21:46)
--- NOTE | 2017-04-16 01:55 | NUR ---
PT REQUESTING FOR ANOTHER DOSE OF SLEEPING PILLS. PT STATED ''IT'S NOT WORKING". RESTORIL 7.5 MG PO GIVEN ORDERED. WILL CONTINUE TO MONITOR.
[2017-04-16] MEDS: LORAZEPAM 0.5 MG TABLET PO PRN ×3 (03:02→19:02)
[2017-04-16] MEDS: BLOOD SUGAR DIAGNOSTIC 1 EACH STRIP VI SCH ×4 (07:33→21:45)
[2017-04-16 08:00] VITALS: BP 106/69
[2017-04-16] MEDS: PANTOPRAZOLE 40 MG TABLET.DR PO SCH (08:14)
[2017-04-16] MEDS: VENLAFAXINE XR 75 MG CAP.SR.24H PO SCH (08:14)
[2017-04-16] MEDS: CLOTRIMAZOLE 1% 15 GM TUBE TP SCH ×2 (08:14→16:05)
[2017-04-16] MEDS: HALOPERIDOL 5 MG TABLET PO SCH ×2 (08:14→16:05)
[2017-04-16] MEDS: Z GUARD REMEDY 2 OZ OINT TP SCH (08:14)
[2017-04-16] MEDS: MAGNESIUM OXIDE 400 MG TABLET PO SCH ×2 (08:14→16:05)
--- NOTE | 2017-04-16 12:28 | NUR ---
PT REF 1200 ACCUCHECK HE STATES HE DOES NOT TAKE INSULIN AND HE WILL EAT TO MAKE SURE THAT HIS SUGAR IS NOT GOING TO BE LOW. REFUSED DESPITE EDUCATION ABOUT THE SLIDING SCALE AND BLOOD GLUCOSE MONITORING.
[2017-04-16 16:00] VITALS: BP 124/84
[2017-04-16 20:02] VITALS: BP 152/91
--- NOTE | 2017-04-16 20:15 | NUR ---
GPS RN NOTES: ELECTROLYSIS INVESTIGATOR SPOKE WITH PATIENT'S MOTHER, PO, SHE IS FRUSTRATED BECAUSE THE PATIENT DOESN'T HAVE ANY IMPROVEMENT AT ALL SINCE SHE WAS ADMITTED HERE IN THE UNIT, SHE EXPRESSED HER FRUSTRATION REGARDING NOT BEING INFORMED OF ANY NEWS REGARDING THE FILING OF THE WRIT OF [employer]. PER MOTHER SHE WAS NOT EVEN INFORMED REGARDING THE 30 DAY HOLD FOR THE PATIENT. SHE ADDED THAT ALL SHE WANTED TO BE FOR THE PATIENT IS TO BE IN A FACILITY WHERE HE CAN BE HELPED. TOLD THE MOTHER THAT HER CONCERNS WILL BE RELAYED TO THE DOCTOR AND TO THE DAY SHIFT NURSE. PATIENT ALSO EXPRESSED THAT HE WASN'T ADVISED REGARDING HIS 30 DAY HOLD. HE EXPRESSED HIS DESIRE TO BE DISCHARGED TO HOME. ACCORDING TO HIM, HE DOES NOT HAVE ANY SUICIDAL THOUGHTS OR PLANS THIS TIME.
[2017-04-16] MEDS: FLUVOXAMINE MALEATE 50 MG TABLET PO SCH (21:45)
[2017-04-16] MEDS: *INSULIN REGULAR(HUMULIN R)HUM 100 UNIT/ML VIAL SQ PRN (21:46)
[2017-04-16] MEDS: TEMAZEPAM 15 MG CAPSULE PO PRN (23:10)
[2017-04-17] MEDS: LORAZEPAM 0.5 MG TABLET PO PRN ×2 (03:05→13:15)
[2017-04-17] MEDS: BLOOD SUGAR DIAGNOSTIC 1 EACH STRIP VI SCH ×4 (07:30→21:11)
[2017-04-17 08:00] VITALS: BP 128/72
--- NOTE | 2017-04-17 08:00 | NUR ---
GPS/RN PATIENT REFUSED ACCUCHECK X 3, EXPLAINED RISKS AND BENEFITS, WILL CONTINUE TO ENCOURAGE TO COMPLY WITH REGIMEN.
[2017-04-17] MEDS: PANTOPRAZOLE 40 MG TABLET.DR PO SCH (08:33)
[2017-04-17] MEDS: VENLAFAXINE XR 75 MG CAP.SR.24H PO SCH (08:33)
[2017-04-17] MEDS: MAGNESIUM OXIDE 400 MG TABLET PO SCH ×2 (08:33→16:41)
[2017-04-17] MEDS: HALOPERIDOL 5 MG TABLET PO SCH ×2 (08:33→16:41)
[2017-04-17] MEDS: CLOTRIMAZOLE 1% 15 GM TUBE TP SCH ×2 (08:34→16:41)
[2017-04-17] MEDS: Z GUARD REMEDY 2 OZ OINT TP SCH (09:00)
--- NOTE | 2017-04-17 11:15 | NUR ---
Faxed updated "Declaration in Support of [facility] Conservatorship" form indicating when the patient was placed on a 30 day bed hold (04/16/2017 per GPS attendance secretary Erlinda) to [employer] ( / ).
[2017-04-17 16:00] VITALS: BP 118/79
[2017-04-17 16:07] VITALS: BP 118/79
--- NOTE | 2017-04-17 17:30 | NUR ---
GPS/RN PATIENT REFUSED 1700 ACCUCHECK X 3, EXPLAINED RISKS AND BENEFITS, WILL CONTINUE TO ENCOURAGE TO COMPLY WITH REGIMEN.
[2017-04-17 20:11] VITALS: BP 146/94
[2017-04-17] MEDS: FLUVOXAMINE MALEATE 50 MG TABLET PO SCH (21:07)
[2017-04-17] MEDS: TEMAZEPAM 15 MG CAPSULE PO PRN (21:08)
[2017-04-17] MEDS: TEMAZEPAM 7.5 MG CAPSULE PO PRN (22:14)
[2017-04-18] MEDS: LORAZEPAM 0.5 MG TABLET PO PRN ×2 (02:07→13:02)
[2017-04-18] MEDS: BLOOD SUGAR DIAGNOSTIC 1 EACH STRIP VI SCH ×4 (07:30→22:00)
--- NOTE | 2017-04-18 07:43 | NUR ---
[id number]: PT REFUSED MORNING ACCUCHECK. PT IS MADE AWARE OF BENEFITS AND SIDE EFFECTS OF BEING COMPLAINT WITH ACCUCHECK.
[2017-04-18] MEDS: PANTOPRAZOLE 40 MG TABLET.DR PO SCH (07:49)
[2017-04-18] MEDS: HALOPERIDOL 5 MG TABLET PO SCH ×2 (08:00→16:57)
[2017-04-18] MEDS: MAGNESIUM OXIDE 400 MG TABLET PO SCH ×2 (08:00→16:58)
[2017-04-18] MEDS: VENLAFAXINE XR 75 MG CAP.SR.24H PO SCH (08:00)
[2017-04-18] MEDS: CLOTRIMAZOLE 1% 15 GM TUBE TP SCH ×2 (08:02→16:59)
[2017-04-18 08:17] VITALS: BP 113/73
[2017-04-18] MEDS: Z GUARD REMEDY 2 OZ OINT TP SCH (08:39)
[2017-04-18 11:16] LABS: CALCITRIOL VIT D,1, 25 DIHYDRO 30.3 pg/mL (19.9-79.3)
--- NOTE | 2017-04-18 12:00 | NUR ---
[id number]: BLOOD SUGAR IS 147 MG/DL AND PT REFUSED INSULIN AT THIS TIME.
--- NOTE | 2017-04-18 13:02 | NUR ---
[id number]: GAVE ATIVAN 1 MG PO DUE TO SEVERE ANXIETY UPON PT REQUEST AND WILL CONTINUE TO MONITOR FOR EFFECTIVENESS OF MEDICATION
--- NOTE | 2017-04-18 13:57 | NUR ---
Faxed referral to [facility] ([address] [place] [address]; [phone]; fax: [phone]). ROXANA will follow up. Faxed referral to [facility] ([address] [place] [address] ). ROXANA will follow up. Roxana faxed referral to [facility] ([address] [place] [address] ). ROXANA will follow up. ROXANA faxed referral to [facility] ([address] [place] [address]; [phone]; fax: [phone]). ROXANA will follow up. Roxana faxed referral to [facility] ([address] [place] [address] ; ). ROXANA will follow up. ROXANA Faxed referral to [facility] ([address] [place] [address] Direct : . ROXANA will follow up. Addendum: 04/18/17 at 1435 by PAULY WALLACE Per psychiatrist, patient was agreeing to placement. SW spoke with the patient and he stated that he is agreeing to placement but that it would depend on the area.
--- NOTE | 2017-04-18 13:57 | NUR ---
[id number]: PT AND PT'S MOTHER WOULD LIKE PT NOT TO TAKE MORNING MEDICATIONS FOR GOING TO THE COURT TOMORROW ON 04/19/17.
--- NOTE | 2017-04-18 14:48 | NUR ---
MADISON informed benefits technician Shalom for [facility] ([address] [place] [address]; [phone]; fax: [phone]) that she faxed referral. Shalom informed the SW that he can come by and see the patient in the case that they can accept the patient. MADISON informed the patient who stated that he does not want a jail in the [place], [place] and does not want to meet with the benefits technician. Patient denied to meet with the benefits technician from this facility and SW informed Shalom.
--- NOTE | 2017-04-18 14:50 | NUR ---
Sw received a call from Brenda from [facility] ([address] [place] [address] ; ) who stated that their DON stated that they are not willing to accept the patient as patient is not a right fit for their facility.
--- NOTE | 2017-04-18 15:26 | NUR ---
Sw called [facility] ([address] [place] [address] ) to follow up on referral. AJ in admissions stated that they cannot accept the patient as patient has psychiatric history and is not appropriate for their facility.
[2017-04-18 16:00] VITALS: BP 125/62
--- NOTE | 2017-04-18 16:00 | NUR ---
[id number]: BLOOD SUGAR IS 108 MG/DL AND NO INSULIN REQUIRED AT THIS TIME
[2017-04-18] MEDS ORDERED: LORAZEPAM 1 MG TABLET PO ONE (19:00)
[2017-04-18 20:30] VITALS: BP 142/97
[2017-04-18] MEDS: TEMAZEPAM 15 MG CAPSULE PO PRN (21:59)
[2017-04-18] MEDS ORDERED: FLUVOXAMINE MALEATE 50 MG TABLET PO SCH (22:00)
[2017-04-18] MEDS: TEMAZEPAM 7.5 MG CAPSULE PO PRN (23:16)
[2017-04-19] MEDS: LORAZEPAM 0.5 MG TABLET PO PRN (00:28)
--- NOTE | 2017-04-19 07:43 | NUR ---
Sw received a voicemail message from Juliana from [facility] ([address] [place] [address] Direct : who stated that they are not able to accept the patient as he is not a right fit for their facility.
[2017-04-19 08:00] VITALS: BP 135/96
--- NOTE | 2017-04-19 09:10 | NUR ---
Pt's mother, Jess Begum ([phone]/ ) came to social work office upset and worried that pt. needs more resources. She asked if all programs recommended by the psychologist have been checked. MADISON reassured Jess that all options close by for an outpatient program have been considered. She continued to express her disappointment with the system, and how there aren't any available resources for the patient, and how she doesn't like the patient's psychologist (who reportedly the patient likes a lot and gets along very well), and the psychiatrist (who gives wrong medications, per mother) and that all the programs that he has used have not been successful. Pt. has used many different treatments and has been at different programs, and per mother, none have been successful or effective. MADISON reassured the mother again that everything is being done to provide him with as many resources and options as possible, but options are limited as pt. does not want anything far and does not want to be placed in a dual diagnosis programs. MADISON notified Jess that pt. agreed to be discharged to a snf, but mother said she does not want that. MADISON informed the mother that since he is not conserved and is able to make his own decisions it will be his decision to make whether he agrees to go to a SNF or not. Mother understood that but continued to express her dissatisfaction. MADISON on the case will follow up
--- NOTE | 2017-04-19 10:17 | NUR ---
MADISON spoke to Jenae from [facility] ([address] [place] [address]; [phone]; fax: [phone]) who stated that she spoke to her internet systems administrator Shady Nagel and she stated that patient has been accepted to their facility. Jenae was given H&P information pertaining to the patient's reason for admit to psych unit and past psychiatric history prior to acceptance. MADISON will notify the patient and his mother when he comes back from his hearing. Addendum: 04/19/17 at 1322 by PAULY WALLACE Informed Jenae from the facility that patient decided to go home and does not want to be placed at this time. She appreciated the information.
[2017-04-19] MEDS ORDERED: ERGOCALCIFEROL (VITAMIN D 2) 50,000 UNIT CAPSULE PO SCH (11:00)
[2017-04-19] MEDS ORDERED: ACETAMINOPHEN 325 MG TABLET PO PRN (12:30)
[2017-04-19] MEDS ORDERED: LORAZEPAM 0.5 MG TABLET PO PRN (12:30)
[2017-04-19] MEDS ORDERED: MAGNESIUM HYDROXIDE 30 ML UDC PO PRN (12:30)
[2017-04-19] MEDS ORDERED: LOPERAMIDE HCL (2 MG CAP) 2 MG CAPSULE PO PRN (12:30)
[2017-04-19] MEDS ORDERED: TEMAZEPAM 15 MG CAPSULE PO PRN (12:30)
[2017-04-19] MEDS ORDERED: DEXTROSE 50%-WATER 50 ML DISP.SYRIN IV PRN (12:30)
[2017-04-19] MEDS ORDERED: hydrOXYzine PAMOATE 25 MG CAPSULE PO PRN (12:30)
[2017-04-19] MEDS ORDERED: MAG HYDROX/AL HYDROX/SIMETH 30 ML UDC PO PRN (12:30)
--- NOTE | 2017-04-19 12:42 | NUR ---
SW was informed that the patient was released by the court. Patient was informed that he was accepted to [facility] ([address], [place] [address]; [phone]; fax: [phone]). He stated that he does not want placement and that he is able to go back home. He stated that his mother Jess Begum ([phone]/ [phone]) will be picking him up. Roxana informed him that she will give him resources for Narcotics Anonymous and will include the resources in his discharge packet.
[2017-04-19] MEDS: BLOOD SUGAR DIAGNOSTIC 1 EACH STRIP VI SCH (13:00)
[2017-04-19] MEDS: CLOTRIMAZOLE 1% 15 GM TUBE TP SCH (13:00)
[2017-04-19] MEDS: Z GUARD REMEDY 2 OZ OINT TP SCH (13:00)
--- NOTE | 2017-04-19 13:00 | NUR ---
RN-CO: Patient is alert and oriented x4, w/ a bright affect, and interacting with staff. Calm and denied suicidal and homicidal ideation. Denied auditory and visual hallucinations. Patient stated " I am exited, I have a lot of plans for my life, but this time me and my Mom will eat out as soon as I am discharge here." " I won't do the same thing that I did before and I don't want to be readmitted in psych [facility] ever again." Mother came here to pick him up. All belongings will be given back to the patient. Patient was given his prescriptions and he verbalized understanding on how to take it. Instructed patient to see primary psychiatrist and medical doctor for follow up.
--- NOTE | 2017-04-19 13:20 | NUR ---
RN-CO: Patient was released by court ( pt filed a writ of pippa méndez). Patient came back at 12:45 pm w/ staff. Notified Dr Preston and he ordered to discharge patient and discontinue hold noted and carried out.
--- NOTE | 2017-04-19 13:25 | NUR ---
Followed up with [facility] ([address], [place] [address] ) and spoke to Ana M. She stated that no one in admissions was available and SW left her contact message. Patient has decided to be discharged home and refusing placement.
--- NOTE | 2017-04-19 13:27 | NUR ---
Discharge note: Patient will be discharged back home to [address] [place] [address] [address], [place] [address] ([phone]) with his mother Jess Begum ([phone]/ [phone]) via private transportation. Mother agrees for the patient to be discharged back home and patient continues to refuse placement at this time. Informed him of admitting facility ([facility] [address] [place] [address]; [phone]; fax: [phone]) and stated he is going home. Patient denying suicidal/homicidal ideations at this time. He was alert and oriented x4, continued to deny placement, and reported that he was waiting for his paperwork to be finished so he can be discharged back home with his mother. Patient was given Narcotics Anonymous meeting information including date and time. Meeting will be held at [place] [address] located at [address] [place] [address]. Patient will attend Narcotics Anonymous meeting on Friday April 21, 2017 at 3pm. He was also provided with additional meeting time and dates. Patient has an intake apt with [facility]- spoke to Olivia to schedule the apt ([address], [place] [address]) for April 20, 2017 at 2pm and Olivia will confirm the appt date and time with the patient and his mother. Patient was also given a list of psychologists and psychiatrists per the mothers and patient's request in case he wants to obtain a new psychologist/psychiatrist that takes his insurance plan (medicare). Sw also provided the patient with referrals for support groups for those living with mental illness at the [facility] located at [address] [place] [address] For Wednesday April 26, 2017 at 6pm. Mother stated that that is exactly what he needs. Per the patient, he will arrange a follow up appt with his current psychiatrist Dr. Love Isaac ([address] [facility] [address], [place] [address] [phone]) and mother stated that she would assist him in scheduling the appt. Facilitated information to IDT team who are in agreement with dc arrangement. The multidisciplinary exitcare form was done, printed, signed, and given to the patient.
[2017-04-19] MEDS ORDERED: VENLAFAXINE XR 75 MG CAP.SR.24H PO ONE (13:30)
--- NOTE | 2017-04-19 14:20 | NUR ---
EMERGENCY SPILL RESPONSE TECHNICIAN NOTE:PATIENT ALERT ,VERBALLY RESPONSIVE ,VS STABLE,THE WRIT IS GRANTED AND PATIENT RELEASED FROM INVOL HOLD BY COURT. ,DISCHARGED IN STABLE CONDITION .COOPERATIVE AND COMPLIANT .PATIENT STATED" I FEEL BETTER AND I AM NOT SUICIDAL OR DEPRESSED, I WILL HAVE TO COME BACK TO HOSPITAL WHEN I FEEL SUICIDAL AGAIN ".PATIENT SMILING AND DENIES HOMICIDAL IDEATION AND AVH.ALL BELONGINGS RETURNED TO PATIENT .ALL DISCHARGE INSTRUCTION GIVEN TO PATIENT ,PRESCRIPTION GIVE AND EXPLAINED ABLE TO VERBALIZE UNDERSTANDING .DR. MARIBEL MONK CALLED BACK WITH DISCHARGE ORDERS .PATIENT SCORTED BY STAFF AND DISCHARGED WITH HIS MOTHER.
[2017-04-19] MEDS ORDERED: HALOPERIDOL 5 MG TABLET PO SCH (17:00)
[2017-04-19] MEDS ORDERED: MAGNESIUM OXIDE 400 MG TABLET PO SCH (17:00)
[2017-04-19] MEDS ORDERED: FLUVOXAMINE MALEATE 50 MG TABLET PO SCH (22:00)
[2017-04-20] MEDS ORDERED: PANTOPRAZOLE 40 MG TABLET.DR PO SCH (07:30)
[2017-04-20] MEDS ORDERED: VENLAFAXINE XR 75 MG CAP.SR.24H PO SCH (09:00)
== END 2017-04-19 14:20 | disposition home or self-care (01) | DRG 885 ==
LOC: GPS 20:01
PROVIDERS: ADMIT Psychiatry & Neurology Psychiatry; ATTEND Internal Medicine
DX: F33.2 Major depressive disorder, recurrent severe without psychotic features (principal); N17.0 Acute kidney failure with tubular necrosis; N18.9 Chronic kidney disease, unspecified; F23 Brief psychotic disorder; K92.2 Gastrointestinal hemorrhage, unspecified; K21.9 Gastro-esophageal reflux disease without esophagitis; E78.5 Hyperlipidemia, unspecified; E87.6 Hypokalemia; E11.22 Type 2 diabetes mellitus with diabetic chronic kidney disease; F41.9 Anxiety disorder, unspecified; K64.9 Unspecified hemorrhoids; Z73.6 Limitation of activities due to disability; Z91.5 Personal history of self-harm
CPT/HCPCS: 36415; 80048-TC; 80053-TC; 80061-TC; 82272-TC; 82306; 82652; 82962-TC; 83735-TC; 83970; 84100-TC; 85025-TC; 87081-TC; J1815; Q0177; Z7610